=== PATIENT | male | born 1950 | race Caucasian/White ===

== ENCOUNTER 2018-11-24 15:16 | Inpatient (IN) | payer MEDICARE ==
[~2018-11-24] VITALS: Ht 182.9 cm; Wt 122.5 kg
--- OUTSIDE RECORDS SUMMARY | 2018-11-24 15:19 | XMS REPORT ---
Author Author [facility] Address Unknown Phone Unavailable Care Team Providers Care Automotive General Sales Manager Name Role Phone Unavailable Unavailable Problems This patient has no known problems. Allergies, Adverse Reactions, Alerts This patient has no known allergies or adverse reactions. Medications This patient has no known medications. Encounters Start Date/Time End Date/Time Encounter Type Admission Type Attending Clinicians Care Facility Care Department Encounter ID 2017-01-14 11:14:00 2017-01-14 11:14:00 Outpatient [facility] [id number]
--- OUTSIDE RECORDS SUMMARY | 2018-11-24 15:19 | XMS REPORT | Summary of Care ---
Author Author Josi Edwards R.N. Unknown Address [facility] Phone Unavailable Care Team Providers Care Freight Brake Operator Name Role Phone DINAH Reynolds, AMY Unavailable Unavailable DINAH BEATTY VA, AMY Richards Unavailable Unavailable JITENDRA BEATTY, LUIS Zee Unavailable Unavailable KEREN BEATTY, PAULA Zarate Unavailable Unavailable MARTIN ROBERTSON MD, THAIS Guaman Unavailable Unavailable Unavailable Unavailable Functional Status Name Dates Details Functional status health issues are not documented Status: Name Dates Details Cognitive status health issues are not documented Status: Problems Name Dates Details Need for influenza vaccination (V04.81, Z23) Status: Active Ganglion of foot, left (727.43, M67.472) Status: Active Postural urinary incontinence (788.39, N39.492) Status: Active POTS (postural orthostatic tachycardia syndrome) (427.89, R00.0) Status: Active Mixed hyperlipidemia (272.2, E78.2) Status: Active Need for pneumococcal vaccination (V03.82, Z23) Status: Active Need for shingles vaccine (V04.89, Z23) Status: Active Need for hepatitis C screening test (V73.89, Z11.59) Status: Active Medications Name Dates Details Atorvastatin Calcium 40 MG Oral Tablet TAKE 1 TABLET BY MOUTH AT BEDTIME Quantity: 90 Active Nystatin-Triamcinolone 784784-4.1 UNIT/GM-% External Cream APPLY SPARINGLY TO AFFECTED AREA(S) TWICE DAILY * Quantity: 30 Refills: 2 AMY NIX M.D. * Start : 24-Dec-2016 Active Shingrix 50 MCG Intramuscular Suspension Reconstituted INJECT 1 ML ONCE * Quantity: 1 Refills: 0 AMY NIX M.D. * Start : 24-Feb-2018 Active Allergies and Adverse Reactions Name Dates Details No Known Drug Allergies (Allergy) Status: Active Past Medical History Name Dates Details History of bladder cancer (V10.51, Z85.51) Status: Resolved History of colon polyps (V12.72, Z86.010) Status: Resolved History of hyperlipidemia (V12.29, Z86.39) Status: Resolved History of prostate cancer (V10.46, Z85.46) Status: Resolved Procedures Procedure Dates Details [QH] LIPID PANEL WITH REFLEX TO DIRECT LDL Date: 24-Feb-2018 [[facility]] CMP W/EGFR Date: 24-Feb-2018 [[facility]] TSH, 3RD GENERATION Date: 24-Feb-2018 [[facility]] HEPATITIS C ANTIBODY Date: 24-Feb-2018 [Q] FECAL GLOBIN BY IMMUNOCHEMISTRY Date: 24-Feb-2018 History of Cholecystectomy Completed History of Prostate Surgery Completed History of Bladder Surgery Completed History of Arthroscopy Knee Left Completed History of Arthroscopy Knee Right Completed Immunization Name Dates Details Tetanus on: Aug-2011 Fluzone Quadrivalent 0.5 ML Intramuscular Suspension Lot #: [id number] on: 03-Oct-2016 Prevnar 13 Intramuscular Suspension Lot #: [id number] on: 24-Feb-2018 Family History Name Dates Details Family history of diabetes mellitus (V18.0, Z83.3) Status: Active Name Dates Details Family history of malignant neoplasm of urinary bladder (V16.52, Z80.52) Status: Active Name Dates Details Family history of diabetes mellitus (V18.0, Z83.3) Status: Active Social History Name Dates Details - Status: Name Dates Details Never smoker Vital Signs Date Test Result Details [id number] Physical Findings 0 Status: Comments: Alcohol Screen - How many times in the past yr have you had 5 (for M) or 4 (for F) or 4 (for all > 65yrs) or more drinks in a day? Physical Findings 0 Status: Comments: PHQ-9 Adult Depression Screening 68-Gxh-48100:08 BP Systolic 118 mm[Hg] Status: Comments: Location: LUE; Position: Sitting BP Diastolic 71 mm[Hg] Status: Comments: Location: LUE; Position: Sitting Height 72 in Status: Weight 269.3125 lb Status: Body Mass Index Calculated 36.53 kg/m2 Status: Body Surface Area Calculated 2.42 m2 Status: Temperature 98 f Status: Comments: Method: Temporal Heart Rate 73 /min Status: Respiration Rate 16 /min Status: Physical Findings 0 Status: Comments: Pain Scale Results Date Description Value Details Results not documented Plan of Care Name Dates Details Planned Observations [Q] FECAL GLOBIN BY IMMUNOCHEMISTRY On: 25-Feb-2018 Intent Planned Goals not documented Planned Encounters Urology Referral Appointment; AMY NIX M.D. On: 31-Mar-2018 9:00 Interventions Provided Medication Changes* Shingrix 50 MCG Intramuscular Suspension Reconstituted - Start Labs/Procedures/Imaging* [QH] LIPID PANEL WITH REFLEX TO DIRECT LDL; To Be Done: 24 Feb 2018 * [[facility]] CMP W/EGFR; To Be Done: 24 Feb 2018 * [[facility]] HEPATITIS C ANTIBODY; To Be Done: 24 Feb 2018 * [[facility]] TSH, 3RD GENERATION; To Be Done: 24 Feb 2018 Instructions* Patient Specific Education Given; Done: 24 Feb 2018 Medications/Immunizations Administered* Prevnar 13 Intramuscular Suspension; Done: 24 Feb 2018 Plan* Encouraged ongoing weight reduction via exercise, healthy diet, and portion control. * Monitor BP dadily. * Goal is < 130/80 without dizziness or syncope. 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 Was previously seeing Dr. Hunter, but he's no longer on his plan. * Referred patient to Dr. Santana. * Obtain fasting lipids, CMP, TSH, and hep C Ab. * FIT test given to screen for colon cancer. * Administer Prenvar. Get Pneumovax in 1 year. * Recommended flu vaccine this fall. * Td is up to date. * Rx given for Shingrix. Patient advised to get this at the pharmacy. Instructions Name Dates Details Instructions not documented Encounters Appointment; AMY NIX M.D. Encounter Diagnosis: Problem not documented On: 03-Oct-2016 9:00 Appointment; AMY NIX M.D. Encounter Diagnosis: Problem not documented On: 29-Oct-2016 14:15 Appointment; CAROLINE CRAIG M.D. Encounter Diagnosis: Problem not documented On: 13-Dec-2016 13:00 Appointment; AMY NIX M.D. Encounter Diagnosis: Problem not documented On: 24-Dec-2016 9:00 Appointment; AMY NIX M.D. Encounter Diagnosis: Problem not documented On: 24-Feb-2018 9:00
[2018-11-24] MEDS ORDERED: SODIUM CHLORIDE 0.9% 1000ML 1,000 ML IV STA (16:34)
[2018-11-24 17:28] LABS: BILIRUBIN,URINE NEGATIVE (NEGATIVE); CLARITY,URINE HAZY (CLEAR); COLOR,URINE YELLOW (YELLOW); KETONES,URINE TRACE (NEGATIVE); LEUKOCYTE ESTERASE ,URINE NEGATIVE (NEGATIVE); NITRITE,URINE NEGATIVE (NEGATIVE); PROTEIN,URINE DIPSTICK 1+ (NEGATIVE); URINE UROBILINOGEN 1 mg/dL (0.2 - 1)
[2018-11-24 17:37] LABS: BACTERIA,URINE MANY /HPF; EPITHELIAL CELLS,URINE FEW /LPF; RBC,URINE 21-50 /HPF (0-5); TRANSITIONAL EPI CELLS,URINE FEW; WBC,URINE (MAN) 0-5 /HPF (0-5)
--- NOTE | 2018-11-24 17:43 | Diagnostic Imaging Report ---
EXAM: CT Abdomen and Pelvis WITHOUT contrast INDICATION: Left flank pain. Kidney stone. Radiation to bladder due to cancer. Kidney stones. Hyperlipidemia. COMPARISON: None. TECHNIQUE: Abdomen and pelvis were scanned utilizing a multidetector helical scanner from the lung base to the pubic symphysis without administration of IV contrast. Absence of intravenous contrast decreases sensitivity for detection of focal lesions and vascular pathology. Coronal and sagittal reformations were obtained. Routine protocol was performed. IV CONTRAST: None ORAL CONTRAST: Water COMPLICATIONS: None RADIATION DOSE: Total DLP: 837.85 mGy*cm Estimated effective dose: (DLP x 0.015 x size factor) mSv CTDIvol has been reviewed. It is below the limits set by the Radiation Protocol Committee (RPC). Dose modulation, iterative reconstruction, and/or weight based adjustment of the mA/kV was utilized to reduce the radiation dose to as low as reasonably achievable. FINDINGS: LINES and TUBES: None. LOWER THORAX: Unremarkable HEPATOBILIARY: No focal hepatic lesions. No biliary ductal dilation. GALLBLADDER: Cholecystectomy clips SPLEEN: No splenomegaly. PANCREAS: No focal masses or ductal dilatation. ADRENALS: No adrenal nodules KIDNEYS/URETERS: 4 mm obstructing stone in the proximal left ureter best seen on series 3 image 102. Mild left hydronephrosis and hydroureter. Left perinephric fat stranding. Punctate nonobstructing right renal stone in the lower pole. GI TRACT: No abnormal distention, wall thickening, or evidence of bowel obstruction. PELVIC ORGANS/BLADDER: Surgical clips in the pelvis.. LYMPH NODES: No lymphadenopathy. VESSELS: Unremarkable. PERITONEUM / RETROPERITONEUM: No free air or fluid. BONES: Unremarkable. SOFT TISSUES: Unremarkable. IMPRESSION: 4 mm obstructing stone in the proximal left ureter best seen on series 3 image 102. Mild left hydronephrosis and hydroureter. Left perinephric fat stranding. Punctate nonobstructing right renal stone in the lower pole. Signed by: Dr. Kwaku Luu M.D. on 11/24/2018 5:40 PM
[2018-11-24] MEDS ORDERED: KETOROLAC TROMETHAMINE 30 MG/ML VIAL IV NR (18:30)
[2018-11-24] MEDS ORDERED: ONDANSETRON HCL INJ 2MG/ML 2ML 2 MG/ML VIAL IV NR (18:30)
[2018-11-24] MEDS ORDERED: MORPHINE SULFATE INJ 4 MG/ML INJ 1ML IV NR (18:30)
[2018-11-24] MEDS: SODIUM CHLORIDE 0.9% 1000ML 1,000 ML IV SCH (18:36)
[2018-11-24 18:37] LABS: BASOPHILS # (AUTO) 0.1 (0.0-0.1); BASOPHILS % 0.3 % (0.0-1.0); EOSINOPHILS % 0.2 % (0.0-6.0); HEMATOCRIT 48.8 % (38.2-49.6); HEMOGLOBIN 16.8 g/dL (14.0-18.0); LYMPHOCYTES # (AUTO) 1.1 (1.0-3.2); LYMPHOCYTES % 7.1 % (18.0-39.1); MEAN CORPUSCULAR HEMOGLOBIN 33.1 pg (28-32); MEAN CORPUSCULAR HGB CONC 34.4 g/dL (31-35); MEAN CORPUSCULAR VOLUME 96.1 fL (81-99); MONOCYTES # (AUTO) 0.8 (0.2-0.8); MONOCYTES % 5.4 % (4.4-11.3); NEUTROPHILS # (AUTO) 13.1 (2.1-6.9); NEUTROPHILS % 86.5 % (38.7-80.0); PLATELET COUNT 219 x10e3/uL (140-360); RED BLOOD COUNT 5.08 x10e6/uL (4.3-5.7); RED CELL DISTRIBUTION WIDTH 12.5 % (11.7-14.4)
[2018-11-24 18:53] LABS: ALBUMIN/GLOBULIN RATIO 1.2 (0.8-2.0); ANION GAP 14.2 mmol/L (8-16); CALCIUM 9.9 mg/dL (8.4-10.2); CREATININE, SERUM 1.29 mg/dL (0.72-1.25); MAGNESIUM 2.1 MG/DL (1.3-2.1); POTASSIUM 4.2 mmol/L (3.5-5.1)
[2018-11-24] MEDS ORDERED: CEFTRIAXONE SOD 1 GM/NS 50 ML 50 ML IV ONE (19:30)
[2018-11-24] MEDS ORDERED: SODIUM CHLORIDE 0.9% 1000ML 1,000 ML IV SCH (19:39)
[2018-11-24] MEDS ORDERED: ONDANSETRON HCL INJ 2MG/ML 2ML 2 MG/ML VIAL IV PRN (19:45)
[2018-11-24] MEDS ORDERED: MORPHINE SULFATE INJ 4 MG/ML INJ 1ML IV PRN (20:00)
[2018-11-24] MEDS: CEFTRIAXONE SOD 1 GM/NS 50 ML 50 ML IV SCH (20:13)
--- NOTE | 2018-11-24 20:22 | NUR ---
REPORT RECEIVED FROM QUEENIE IN ER FOR THIS PT.CONSULT TO DR CHAUDHRY ALREADY CALLED PER REPORT FROM QUEENIE.AWAITING PT ARRIVAL TO FLOOR.
--- NOTE | 2018-11-24 20:25 | History and Physical ---
CHIEF COMPLAINT: Lower abdominal pain. HISTORY OF PRESENT ILLNESS: Mr. Simmons is a 67-year-old male, who presented to the emergency room with lower abdominal pain. The patient has history of kidney stones in the past. He had CT chest done and shows 4 mm obstructing stone in the proximal left ureter and with mild hydronephrosis. He is denying any nausea, vomiting, diarrhea, or focal weakness. REVIEW OF SYSTEMS: GENERAL: Denies any fever or chills. HEAD: Denies any head trauma. ENT: Denies any earache. CVS: Denies any chest pain. RESPIRATORY: Shortness of breath. GI: Denies any nausea or vomiting. The rest of the review of systems are negative except as in HPI. PAST MEDICAL HISTORY: Prostate cancer in 2007 and gallbladder cancer in 2010. He is cancer free. PAST SURGICAL HISTORY: Cholecystectomy, prostate surgery, and knee surgery. FAMILY AND SOCIAL HISTORY: He does not smoke. Does not drink. 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 PHYSICAL EXAMINATION: VITAL SIGNS: Temperature 97.9, pulse of 83, and blood pressure 155/72. CHEST: Clear to auscultation bilaterally. No wheezing. HEART: S1 and S2 audible. ABDOMEN: Soft. Left CVA tenderness. EXTREMITIES: No pedal edema. NEUROLOGIC: Awake and alert. LABS: White count of 15,000, hemoglobin 16.8, and platelets 219. Chemistry is within normal limits. Creatinine is 1.29. ASSESSMENT: Mr. Simmons is a 67-year-old male, who presented to emergency room with left flank pain, diagnosed with an obstructing kidney stone. Current problems: 1. Nephrolithiasis. 2. Mild acute kidney injury due to nephrolithiasis and leukocytosis. PLAN: 1. Urology consult. 2. Continue the patient on IV antibiotics as ordered. Morphine for pain control. MD RAMANDEEP Hernandez/GRETCHEN /[id number]
[2018-11-24 20:38] VITALS: BP 131/77
[2018-11-24 21:57] VITALS: BP 131/77
--- NOTE | 2018-11-24 22:18 | NUR ---
PT RESTING IN BED WITH NO S/S OF DISTRESS.RESPIRATIONS EVEN/NON LABORED.ADMISSION HX,FAMILY HX AND ASSESSMENT DONE.INSTRUCTED PT TO CALL THE NURSE AFTER EACH VOID TO STRAIN URINE,PT VERBALIZED UNDERSTANDING.PT DENIES ANY PAIN CURRENTLY.BED IN LOW/LOCKED POSITION.INSTRUCTED PT TO CALL FOR ASSISTANCE NEEDED.CALL LIGHT WITHIN EASY REACH.
[2018-11-24] MEDS ORDERED: ATORVASTATIN CA20 MG PO (23:44)
[2018-11-25] VITALS (8 sets, daily range): BP systolic 118–166; BP diastolic 61–86
[2018-11-25] MEDS: SODIUM CHLORIDE 0.9% 1000ML 1,000 ML IV SCH ×2 (04:58→15:41)
--- NOTE | 2018-11-25 07:13 | NUR ---
REPORT GIVEN TO ONCOMING NURSE.WALKING ROUNDS MADE.PT RESTING IN BED WITH NO S/S OF DISTRESS.
--- NOTE | 2018-11-25 07:25 | NUR ---
The pt. was received from the off-going nurse on N P O status for cysto and other indicated procedures today. The consent is pending until Dr. Lowe speaks with the pt. Dr. Lowe arrived during report and the consent has been signed.
--- NOTE | 2018-11-25 10:12 | Consultation ---
DATE OF CONSULTATION: 11/25/2018 Urology Consultation. REASON FOR CONSULTATION: Obstructive uropathy. HISTORY OF PRESENT ILLNESS: Johny Simmons is a 67-year-old man, who has had 2 previous stones in the past. The patient underwent ESWL for those stones. He was a previous patient of Dr. Selwyn Hunter. He has not followed with Dr. Selwyn Hunter since he retired and his insurance changed due to insurance incompatibility with the doctor. The patient also has history of prostate cancer in 2006, underwent a radical retropubic prostatectomy with bilateral pelvic lymphadenectomy. The patient has been prostate cancer free since then. The patient at one of the stone procedures was noted to have bladder cancer. He underwent resection. He also had a recurrence of the bladder cancer and following this, he underwent a year of BCG immunotherapy. The patient reports a very minimal stress type urinary incontinence that is inconsequential and he does report impotence. He has failed Viagra and Cialis and has had problems of discomfort in his legs and unwanted side effects from intracorporeal injections. The patient has severe left-sided flank pain without any hematuria or dysuria. He reported to the emergency room, was evaluated and subsequently admitted. PAST MEDICAL AND SURGICAL HISTORY: 1. Status post cholecystectomy. 2. Status post bilateral knee surgery. 3. Hypercholesterolemia. 4. Obesity. ALLERGIES: NONE KNOWN. CURRENT MEDICATIONS: Atorvastatin plus refer to the MAR. SOCIAL HISTORY: The patient denies smoking, alcohol, drug use. 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 FAMILY HISTORY: Significant for urolithiasis in the patient's sister and prostate cancer in patient's identical twin brother. REVIEW OF SYSTEMS: Discussed as above history of present illness and past medical history, otherwise negative for all systems. PHYSICAL EXAMINATION: GENERAL: Very pleasant 67-year-old male lying in bed, in no apparent distress. He is currently afebrile. VITAL SIGNS: Currently stable. ABDOMEN: Soft, nondistended, nontender with costovertebral angle tenderness. Kidneys are not palpable without hepatosplenomegaly. No obvious evidence of hernia. The patient is obese. There is an infraumbilical midline healed scar. GENITOURINARY: Testes descended bilaterally. Testes and epididymis are bilaterally palpably normal. The patient has a circumcised male phallus of normal configuration with dense post circumcision adhesions on the right side of the glans penis. The patient desires resolution and treatment for due to the fact that they have risen over the last couple of years. For the remaining physical examination systems, please refer the ERT sheet as well as to the history and physical. LABORATORY STUDIES: CT scan of the abdomen and pelvis reveals an obstructing high 4 mm stone with left side hydronephrosis and a punctate right-sided stone and no evidence of cancer recurrence. Urine culture is preliminarily negative. The patient's white blood cell count is 15,190, hemoglobin 16.8, platelets 219,000. Creatinine is elevated at 1.29. Urinalysis significant for microscopic hematuria and "many bacteria." ASSESSMENT: 1. Left renal colic that is well controlled with intravenous analgesia. 2. Left ureterolithiasis. 3. Right nephrolithiasis. 4. Left hydroureteronephrosis. 5. Leukocytosis. 6. Presumably acute renal failure. 7. Microhematuria. 8. Prior history of stone disease in this particular patient. 9. Prostate cancer. 10. Bladder cancer. 11. Post circumcision penile adhesions. 12. Obesity. 13. Minimal stress type urinary incontinence. 14. Erectile dysfunction. 15. Family history of urolithiasis. 16. Family history of prostate cancer. PLAN: 1. Due to the fact the patient has significant symptomatology with the stone still very high up as well as renal failure as well as potential for urinary tract infection, I recommend that the patient undergo cystoscopy, retrograde pyelogram, and insertion of stent with later stone management. The patient is agreeable and elects to proceed with that procedure as planned. He understands he will have a temporary indwelling ureteral stent requires followup and removal. 2. The patient needs ongoing urological followup for his prostate cancer, bladder cancer, and happy to assume his ongoing urological care from now on. 3. I also offered the patient the option of a penile prosthesis, which he will consider at a later time. Thank you very much for involving us in care of your patient. We will be happy to follow him along with you as well as an outpatient. Sven MD Mynor OH/MODL /[id number] cc: Johanny Hernández MD
--- NOTE | 2018-11-25 12:07 | NUR ---
The pt. has been taken to the O R via stretcher and is in stable condition.
[2018-11-25] MEDS ORDERED: IOPAMIDOL 610MG/1ML 300 MG/ML VIAL IV ONE (12:46)
[2018-11-25] MEDS ORDERED: BELLADONNA/OPIUM 60 MG SUPP PR ONE (12:46)
[2018-11-25] MEDS ORDERED: MUPIROCIN 2% OINT 22 GM TUBE ONE (12:58)
[2018-11-25] MEDS ORDERED: ACETAMINOPHEN/CODEINE 300MG - 30MG TAB PO PRN (13:15)
[2018-11-25] MEDS ORDERED: HYDROMORPHONE 2MG/ML 2 MG/ML ML ONE (13:36)
--- NOTE | 2018-11-25 13:55 | NUR ---
The pt. returned from the O R s/p cysto retrogrades and stenting. He is awake alert and oriented times 3. Iv fluids are infusing as ordered and the pt. informed that we need to continue straining the urine.
[2018-11-25] MEDS ORDERED: MIDAZOLAM HCL 2 MG/2 ML VIAL ONE (14:30)
[2018-11-25] MEDS ORDERED: FENTANYL CITRATE/PF 100MCG/2 ML INJ ONE (14:30)
[2018-11-25] MEDS: OXYBUTYNIN CHLORIDE 5 MG TAB PO SCH ×2 (15:00→20:15)
--- NOTE | 2018-11-25 16:03 | NUR ---
CASE MANAGEMENT ASSESSMENT Port Surveyor to bedside to discuss plan of care with patient/family. CM/SW role and care transitions discussed. Anticipated discharge plan discussed along with duration of care. CM/SW discussed patients right to make decisions in care. CM/SW work hours given. Patient lives: with Zoe Admit/Transfer: thru ED Hospital/ER visits since last admit: 0 POA/Emergency contact: Zoe Simmons [phone] Current/Previous Home Health: none PCP/Follow-up Care: Dr. Johanny Hernández - PCP; advised pt to follow up with one of his MDs within 5 days of discharge. Current/Previous DME: none Medications (referring to index hospitalization or the first time you were in the hospital) a. Were changes made in your medications when you were in the hospital on [date of index hospitalization]? n/a b. Did you understand the changes? n/a c. Were you able to obtain your new medications right away? n/a d. Were you able to take your medications like the doctor wanted you to? n/a e. Did the hospital give you an accurate, easy to understand list of medications when you left? n/a Scale of 1-10 how comfortable does patient feel with disease management in outpatient settin Other Services: none Employment Status: retired Areas of Concerns: hydronephrosis Referral Needs: none Education Needs: medical management IMM/HOWELL given and signed (if applicable): IMM letter delivered and explained to pt. He verbalized understanding. Signed copy placed in chart. Copy to pt. Goal for discharge: home CM/SW left business card at the bedside with contact information. Name and number was also written on the patients whiteboard. Patient verbalized understanding of discussion. CM will follow-up with ongoing discharge and transition of care needs.
--- NOTE | 2018-11-25 18:29 | NUR ---
The pt. called to report that he is having cramping pain and feels like he needs to evacuate his bowels and there are no med on record. A call was placed to Dr. Lowe for orders.
[2018-11-25] MEDS: PHENAZOPYRIDINE HCL 100 MG TAB PO SCH (18:38)
[2018-11-25] MEDS: DOCUSATE SODIUM 100 MG CAP PO SCH (18:38)
--- NOTE | 2018-11-25 18:41 | NUR ---
Dr. Lowe returned the call and ordered b and o suppository q 6 hr and the pt. was made aware.
[2018-11-25] MEDS ORDERED: BELLADONNA/OPIUM 30 MG SUPP RC PRN (18:45)
[2018-11-25] MEDS: CEFTRIAXONE SOD 1 GM/NS 50 ML 50 ML IV SCH (20:15)
[2018-11-25] MEDS ORDERED: ONDANSETRON HCL INJ 2MG/ML 2ML 2 MG/ML VIAL ONE (20:18)
[2018-11-25] MEDS ORDERED: SEVOFLURANE INHAL SOLN 250 ML PEN BTL ONE (20:18)
[2018-11-25] MEDS ORDERED: PROPOFOL IV EMULSION 10 MG/ML 20 ML VIAL ONE (20:18)
[2018-11-25] MEDS ORDERED: CEFTRIAXONE SOD 1 GM VIAL ONE (20:18)
[2018-11-25] MEDS ORDERED: DEXAMETHASONE SOD PHOS INJ 4 MG/ML VIAL ONE (20:18)
[2018-11-25] MEDS ORDERED: LIDOCAINE HCL 2% LOCAL INJ 5 ML SDV VIAL INJ ONE (20:18)
[2018-11-26] VITALS: BP 120/57
[2018-11-26] MEDS: SODIUM CHLORIDE 0.9% 1000ML 1,000 ML IV SCH (00:30)
--- NOTE | 2018-11-26 01:30 | NUR ---
Patient's dressing to penis fell off. Dressing changed.
--- NOTE | 2018-11-26 03:00 | NUR ---
Dressing to penis fell off again. Patient complain of discomfort during dressing change. Site left open to air.
[2018-11-26 04:00] VITALS: BP 128/62
[2018-11-26 05:33] LABS: BASOPHILS % 0.3 % (0.0-1.0); EOSINOPHILS # (AUTO) 0.1 (0.0-0.4); EOSINOPHILS % 0.4 % (0.0-6.0); HEMOGLOBIN 15.1 g/dL (14.0-18.0); LYMPHOCYTES # (AUTO) 1.7 (1.0-3.2); LYMPHOCYTES % 14.2 % (18.0-39.1); MEAN CORPUSCULAR HGB CONC 34.3 g/dL (31-35); MEAN CORPUSCULAR VOLUME 96.3 fL (81-99); MONOCYTES # (AUTO) 0.7 (0.2-0.8); MONOCYTES % 6.1 % (4.4-11.3); NEUTROPHILS # (AUTO) 9.2 (2.1-6.9); NEUTROPHILS % 78.7 % (38.7-80.0); PLATELET COUNT 197 x10e3/uL (140-360); RED BLOOD COUNT 4.57 x10e6/uL (4.3-5.7); RED CELL DISTRIBUTION WIDTH 12.7 % (11.7-14.4)
[2018-11-26 05:50] LABS: ANION GAP 11.9 mmol/L (8-16); BLOOD UREA NITROGEN 15 mg/dL (7-26); BUN/CREATININE RATIO 17 (6-25); CALCIUM 8.8 mg/dL (8.4-10.2); CARBON DIOXIDE 24 mmol/L (22-29); CHLORIDE 109 mmol/L (98-107); CREATININE, SERUM 0.87 mg/dL (0.72-1.25); EST GLOMERULAR FILTRATION RATE > 60 ML/MIN (60-); GLUCOSE 98 mg/dL (74-118); POTASSIUM 3.9 mmol/L (3.5-5.1); SODIUM 141 mmol/L (136-145)
--- NOTE | 2018-11-26 08:00 | NUR ---
Dr. Lowe visited and stated that from his standpoint the pt. is okay for discharge.
[2018-11-26 08:09] VITALS: BP 142/81
[2018-11-26] MEDS: DOCUSATE SODIUM 100 MG CAP PO SCH (08:25)
[2018-11-26] MEDS: OXYBUTYNIN CHLORIDE 5 MG TAB PO SCH (08:25)
[2018-11-26] MEDS: PHENAZOPYRIDINE HCL 100 MG TAB PO SCH (08:25)
[2018-11-26 10:11] VITALS: BP 142/81
--- NOTE | 2018-11-26 10:36 | NUR ---
A call was placed to Dr. Ospina for discharge orders.
[2018-11-26] MEDS ORDERED: TYLENOL WITH C1 EACH PO (10:52)
[2018-11-26] MEDS ORDERED: DITROPAN XL5 MG PO (10:59)
[2018-11-26] MEDS ORDERED: CEFUROXIME500 MG PO (11:04)
[2018-11-26] MEDS ORDERED: ONDANSETRON HCL 4 MG ORAL DISINTEGRATING TAB PO PRN (11:30)
--- NOTE | 2018-11-26 12:00 | NUR ---
The pt. was escorted to private car via w/c and placed to the care of his spouse. The pt. was provided prescriptions and follow up instructions. He was also provided urine strainers for home use. He will follow up in 3 weeks or more.
--- NOTE | 2018-11-27 05:04 | Discharge Summary ---
FINAL DIAGNOSES: History of renal stones, ureteral calculus, abdominal pain, history of prostate cancer, history of bladder cancer. ADMISSION HISTORY AND HOSPITAL COURSE: Mr. Simmons is a 67-year-old male, who presented to the emergency room with the complaints of abdominal pain, was found to have obstructing kidney stone. The patient underwent placement of stent and cystoscopy with retrograde pyelogram. He did well after the procedure. Urology has cleared the patient for discharge. He will be discharged home to follow up with his primary care physician. Discharge medication list reviewed. Labs reviewed. Discussion was done with the patient and his at bedside. MD RAMANDEEP Hernandez/GRETCHEN /[id number]
--- NOTE | 2018-12-23 04:31 | Operative Report ---
DATE OF PROCEDURE: 11/24/2018 SURGEON: Sven Lowe MD PREOPERATIVE DIAGNOSES: 1. Left hydronephrosis due to stone. 2. Microscopic hematuria. 3. Urinary tract infection. POSTOPERATIVE DIAGNOSES: 1. Left hydronephrosis due to stone. 2. Microscopic hematuria. 3. Urinary tract infection. 4. Penile adhesions. OPERATION PERFORMED: 1. Release of penile adhesions (separate procedure performed prior to preparation and draping). 2. Cystourethroscopy with bilateral ureteral catheterization and retrograde ureteropyelography (separate procedure performed for hematuria and urinary tract infections). 3. Interpretation of retrograde ureteropyelography. 4. Supervision of fluoroscopy, no radiologist present. 5. Cystourethroscopy with insertion of left indwelling ureteral stent (separate procedure performed to relieve the hydronephrosis). ANESTHESIA: General. COMPLICATIONS: None. CLINICAL SUMMARY: Johny Simmons is a 67-year-old man with the above preoperative diagnoses. He is brought for the above procedures. He is brought for relief of his hydronephrosis. He is aware of the risks of bleeding, infection, injury to adjacent structures, need for additional procedures and elected to proceed. OPERATIVE PROCEDURE IN DETAIL: Informed consent was verified. Johny Simmons was properly identified, taken to the operating room, placed on the cystoscopy table in supine position. Anesthesia was uneventfully begun. The patient was then carefully and gently repositioned in the dorsal lithotomy position with all pressure points well padded. We carefully examined the patient's penis and took down all preputial adhesions. Once this was performed, his genitalia were prepared and draped in usual sterile fashion. The cystoscope sheath with the visual obturator in place was atraumatically inserted into the patient's urethra and was guided unremarkably. Urethra passed wide caliber, not clinically significant stricture disease through the normal sphincteric region through the prostate bed which exhibited some wide caliber bladder neck contracture. We entered the patient's bladder where panendoscopy revealed scarring consistent with prior TUR bladder tumor. No suspicious mucosal lesions were identified. There were no tumors and there were no stones. A ureteral catheter was used to cannulate each ureter and retrograde ureteropyelograms were performed. With cystoscopic and fluoroscopic guidance, a left-sided indwelling ureteral stent was then placed, it was coiled in the patient's kidney as well as in the patient's bladder where the retaining suture was cut short. Interpretation of retrograde ureteropyelography: Contrast was instilled in a retrograde fashion bilaterally. There was left-sided hydroureteronephrosis down to the level of what we believed to be the stone. The stent was in good position. We coiled the patient's kidneys as well as the patient's bladder at the end of the case, right side was unremarkable. There were no tumors, no stones, no diverticula. Unobstructed drainage was observed fluoroscopically. The patient's bladder was drained. Cystoscope was withdrawn. Explicit belladonna and opium suppository were placed. The patient was uneventfully reversed from anesthesia and taken to the recovery room in stable condition. There were no complications to the procedure. He tolerated the procedure well. Expressive postop instructions were given. We are unsure if patient is okay by the first postoperative day, following which we will agree with discharging the patient home with followup for stent removal and ureteroscopy with laser as an outpatient. Sven Lowe MD [facility]/MODL /[id number]
== END 2018-11-26 11:58 | disposition home or self-care (01) | DRG 661 ==
LOC: ER 15:16 → ERHOLD 20:24 → MED/SURG2 20:38
PROVIDERS: ADMIT Internal Medicine; ATTEND Internal Medicine
PROC: 0T778DZ Dilation of Left Ureter with Intraluminal Device, Via Natural or Artificial Opening Endoscopic (ICD-10-PCS; principal; 2018-11-24)
PROC: 0VNS0ZZ Release Penis, Open Approach (ICD-10-PCS; 2018-11-24)
PROC: BT141ZZ Fluoroscopy of Kidneys, Ureters and Bladder using Low Osmolar Contrast (ICD-10-PCS; 2018-11-24)
PROC: 0T788ZZ Dilation of Bilateral Ureters, Via Natural or Artificial Opening Endoscopic (ICD-10-PCS; 2018-11-24)
DX: N13.2 Hydronephrosis with renal and ureteral calculous obstruction (principal); N17.9 Acute kidney failure, unspecified; N39.0 Urinary tract infection, site not specified; N52.9 Male erectile dysfunction, unspecified; Z85.46 Personal history of malignant neoplasm of prostate; Q55.8 Other specified congenital malformations of male genital organs; Z85.51 Personal history of malignant neoplasm of bladder; E78.5 Hyperlipidemia, unspecified; E66.9 Obesity, unspecified; Z68.36 Body mass index [BMI] 36.0-36.9, adult
CPT/HCPCS: 36415; 74176; 74420; 80048; 80053; 81001; 83735; 83970; 84550; 85025; 87086; 99284; C1758; C2617; J0696; J1100; J1885; J2001; J2250; J2270; J2405; J7030

== ENCOUNTER → 2019-02-19 | Outpatient (CLI) | payer MEDICARE ==
[~2019-02-19] MED LIST: ATORVASTATIN CA20 MG PO; CEFUROXIME500 MG PO; DITROPAN XL5 MG PO; LEVAQUIN500 MG PO; MULTIVITAMINS1 EAC7 PO; TYLENOL WITH C1 EACH PO
--- NOTE | 2019-02-19 10:08 | Diagnostic Imaging Report ---
Exam: KUB - 2 views Clinical History: Renal calculus. Comparison: CT abdomen/pelvis 11/24/2018 and retrograde pyelogram 11/25/2018. Findings: Bowel gas obscures visualization of the kidneys. No radiographic evidence of calcification overlying the kidneys or expected course of the ureters. Nonobstructive bowel gas pattern. Moderate amount of the colon. Surgical clips project over the pelvis and right upper quadrant. No acute osseous abnormality. Impression: Bowel gas obscures visualization of the kidneys. No radiographic evidence of nephrolithiasis. Signed by: Dr. Rosi Ashby MD on 02/19/2019 10:05 AM
== END ==
LOC: RAD 09:25
PROVIDERS: ATTEND Urology
DX: N20.0 Calculus of kidney (principal)
CPT/HCPCS: 74018

== ENCOUNTER 2019-04-26 11:38 | Inpatient (IN) | payer MEDICARE ==
[2019-04-22 11:01] LABS: BASOPHILS # (AUTO) 0.1 (0.0-0.1); BASOPHILS % 0.8 % (0.0-1.0); EOSINOPHILS # (AUTO) 0.2 (0.0-0.4); EOSINOPHILS % 2.2 % (0.0-6.0); HEMATOCRIT 47.8 % (38.2-49.6); HEMOGLOBIN 16.1 g/dL (14.0-18.0); LYMPHOCYTES # (AUTO) 1.6 (1.0-3.2); LYMPHOCYTES % 21.4 % (18.0-39.1); MEAN CORPUSCULAR HEMOGLOBIN 32.3 pg (28-32); MEAN CORPUSCULAR HGB CONC 33.7 g/dL (31-35); MONOCYTES # (AUTO) 0.6 (0.2-0.8); MONOCYTES % 8.7 % (4.4-11.3); NEUTROPHILS # (AUTO) 4.9 (2.1-6.9); NEUTROPHILS % 66.1 % (38.7-80.0); PLATELET COUNT 232 x10e3/uL (140-360); RED BLOOD COUNT 4.98 x10e6/uL (4.3-5.7); RED CELL DISTRIBUTION WIDTH 12.9 % (11.7-14.4)
--- NOTE | 2019-04-22 11:04 | Diagnostic Imaging Report ---
EXAMINATION: CHEST 2 VIEWS INDICATION: Pre-operative COMPARISON: None FINDINGS: LINES/TUBES:None LUNGS:The lungs are well-inflated. Minimal apical pleural parenchymal thickening/scarring. No focal consolidation or pulmonary edema. PLEURA:No pleural effusion or pneumothorax. MEDIASTINUM:The cardiomediastinal silhouette appears normal in size and shape. BONES/SOFT TISSUES:No acute osseous injury. Mild degenerative changes of the visualized spine. ABDOMEN:No free air under the diaphragm. IMPRESSION: No focal pneumonia or pulmonary edema. Signed by: Jose Coello MD on 04/22/2019 11:00 AM
[~2019-04-26] VITALS: Ht 182.9 cm; Wt 113.4 kg
[~2019-04-26 11:38] MED LIST changes: -LEVAQUIN500 MG PO
--- OUTSIDE RECORDS SUMMARY | 2019-04-26 11:44 | XMS REPORT | Clinical Summary ---
Author Author [facility] Address Unknown Phone Unavailable Care Team Providers Care Mobile Unit Assistant Name Role Phone Abram Sage MD PCP Unavailable Allergies No Known Allergies Medications No known medications Active Problems Not on file Social History Date Tobacco Use Types Packs/Day Years Used Never Smoker Alcohol Use Drinks/Week oz/Week Comments No Sex Assigned at Date Recorded Not on file Industry Job Start Date Occupation Not on file Not on file Not on file Travel End Travel History Travel Start No recent travel history available. Last Filed Vital Signs Not on file Plan of Treatment Not on file Results Not on fileafter 04/25/2018 Insurance Payer Benefit Subscriber ID Type Phone Address Plan / Group [employer] - [employer]ET[employer] HMO xxxxxxxxxx HMO/POS POS QPOS
[2019-04-26] MEDS ORDERED: PIPER-TAZ 3.375 GM 50 ML ONE (11:49)
[2019-04-26] MEDS ORDERED: CLINDAMYCIN 600MG / 50ML 50 ML IV ONE (11:49)
[2019-04-26] MEDS ORDERED: GENTAMICIN 80MG/NS 100 ML 200 ML IV ONE (11:50)
[2019-04-26] MEDS ORDERED: BACITRACIN 50,000 UNIT VIAL ONE (14:36)
[2019-04-26] MEDS ORDERED: BUPIVACAINE HCL 0.5% INJ 30 ML VIAL INJ ONE (14:36)
[2019-04-26] MEDS ORDERED: MUPIROCIN 2% OINT 22 GM TUBE ONE (14:36)
[2019-04-26] MEDS ORDERED: LIDOCAINE HCL 2% LOCAL INJ 5 ML SDV VIAL INJ ONE (14:49)
[2019-04-26] MEDS ORDERED: ONDANSETRON HCL INJ 2MG/ML 2ML 2 MG/ML VIAL ONE (14:49)
[2019-04-26] MEDS ORDERED: SEVOFLURANE INHAL SOLN 250 ML PEN BTL ONE (14:49)
[2019-04-26] MEDS ORDERED: DEXAMETHASONE SOD PHOS INJ 4 MG/ML VIAL ONE (14:49)
[2019-04-26] MEDS ORDERED: PROPOFOL IV EMULSION 10 MG/ML 20 ML VIAL ONE (14:49)
[2019-04-26] MEDS ORDERED: NALOXONE HCL INJ 0.4 MG/ML AMP IV PRN (15:15)
[2019-04-26] MEDS ORDERED: MORPHINE SULFATE 1 MG/ML 30ML PCA IV PRN (15:15)
[2019-04-26] MEDS ORDERED: FENTANYL CITRATE/PF 100MCG/2 ML INJ ONE ×2 (15:35→18:22)
[2019-04-26] MEDS: DOCUSATE SODIUM 100 MG CAP PO SCH (17:00)
--- OUTSIDE RECORDS SUMMARY | 2019-04-26 17:21 | XMS REPORT | Clinical Summary ---
Author Author [facility] Address Unknown Phone Unavailable Care Team Providers Care Printing Plate Setter Name Role Phone Abram Sage MD PCP [...]
[2019-04-26] MEDS ORDERED: MORPHINE SULFATE 1 MG/ML 30ML PCA ONE (17:46)
[2019-04-26] MEDS ORDERED: HYDROMORPHONE 2MG/ML 2 MG/ML ML ONE (17:53)
[2019-04-26] MEDS: PHENAZOPYRIDINE HCL 100 MG TAB PO SCH (18:00)
--- NOTE | 2019-04-26 18:14 | NUR ---
report received from PACU, patient to arrive to unit with at bedside.
[2019-04-26] MEDS ORDERED: MIDAZOLAM HCL 2 MG/2 ML VIAL ONE (18:22)
--- NOTE | 2019-04-26 18:25 | NUR ---
patient arrived to unit via hospital bed, alert and oriented with at bedside. AUTOMOTIVE SERVICE ADVISOR pump running, pinon in place, bed in lowest position and call rodriguez within reach.
[2019-04-26 19:14] VITALS: BP 136/71
--- NOTE | 2019-04-26 19:14 | NUR ---
PT IS RESTING IN BED WITH AT BEDSIDE. RESPIRATION IS EVEN AND UNLABORED, NO DISTRESS NOTED. BED IN THE LOWEST POSITION, LOCKED, AND CALL LIGHT WITHIN REACH. WILL CONTINUE TO MONITOR.
--- NOTE | 2019-04-26 20:08 | NUR ---
PAGE DR RUIZ FOR ORDERS. AWAITING CALL BACK. WILL CONTINUE TO MONITOR.
--- NOTE | 2019-04-26 20:14 | NUR ---
PER DR RUIZ TYLENOL 650MG PO Q4H PRN. WILL CONTINUE TO MONITOR.
[2019-04-26] MEDS ORDERED: ACETAMINOPHEN 325 MG TAB PO PRN (20:15)
[2019-04-26] MEDS: D5.45%NS/KCL 20MEQ 1,000 ML IV SCH (21:18)
[2019-04-26] MEDS: CLINDAMYCIN 600MG / 50ML 50 ML IV SCH (21:27)
[2019-04-26] MEDS: PIPER-TAZ 3.375 GM 50 ML IV SCH (22:20)
[2019-04-26 23:31] VITALS: BP 128/77
[2019-04-27] VITALS (8 sets, daily range): BP systolic 113–148; BP diastolic 53–70
[2019-04-27] MEDS ORDERED: ACETAMINOPHEN 325 MG TAB PO PRN (04:30)
[2019-04-27] MEDS: CLINDAMYCIN 600MG / 50ML 50 ML IV SCH ×3 (05:26→21:27)
[2019-04-27 05:35] LABS: BASOPHILS # (AUTO) 0.1 (0.0-0.1); BASOPHILS % 0.3 % (0.0-1.0); EOSINOPHILS % 0.1 % (0.0-6.0); HEMATOCRIT 45.3 % (38.2-49.6); HEMOGLOBIN 15.6 g/dL (14.0-18.0); LYMPHOCYTES # (AUTO) 1.3 (1.0-3.2); LYMPHOCYTES % 8.6 % (18.0-39.1); MEAN CORPUSCULAR HEMOGLOBIN 32.8 pg (28-32); MEAN CORPUSCULAR HGB CONC 34.4 g/dL (31-35); MEAN CORPUSCULAR VOLUME 95.4 fL (81-99); MONOCYTES # (AUTO) 1.2 (0.2-0.8); MONOCYTES % 8.1 % (4.4-11.3); NEUTROPHILS # (AUTO) 12.1 (2.1-6.9); NEUTROPHILS % 82.5 % (38.7-80.0); PLATELET COUNT 261 x10e3/uL (140-360); RED BLOOD COUNT 4.75 x10e6/uL (4.3-5.7); RED CELL DISTRIBUTION WIDTH 12.8 % (11.7-14.4)
[2019-04-27 06:07] LABS: BLOOD UREA NITROGEN 12 mg/dL (7-26); BUN/CREATININE RATIO 12 (6-25); CARBON DIOXIDE 26 mmol/L (22-29); CHLORIDE 102 mmol/L (98-107); CREATININE, SERUM 1.02 mg/dL (0.72-1.25); EST GLOMERULAR FILTRATION RATE > 60 ML/MIN (60-); GLUCOSE 135 mg/dL (74-118); SODIUM 135 mmol/L (136-145)
[2019-04-27] MEDS: PIPER-TAZ 3.375 GM 50 ML IV SCH ×3 (06:09→21:27)
[2019-04-27] MEDS: D5.45%NS/KCL 20MEQ 1,000 ML IV SCH ×4 (06:32→21:27)
--- NOTE | 2019-04-27 06:45 | NUR ---
walking rounds made, patient alert and oriented and aware of change. call rodriguez within reach and bed in lowest position.
[2019-04-27] MEDS: DOCUSATE SODIUM 100 MG CAP PO SCH ×2 (08:30→17:21)
[2019-04-27] MEDS: PHENAZOPYRIDINE HCL 100 MG TAB PO SCH ×3 (08:30→17:21)
--- NOTE | 2019-04-27 10:00 | NUR ---
patient alert and oriented. Garcia removed at this time, catheter in tact. patient tolerated well. dressing removed per MD at this time as well. Tegaderm replaced on scrotal incision. 100mL of bright yellow urine remaining in Garcia emptied. call rodriguez within reach, bed in lowest position and at bedside.
--- NOTE | 2019-04-27 16:22 | History and Physical ---
Mr. Simmons is a pleasant 68-year-old male with complex past medical history. CHIEF COMPLAINT: He is admitted at this time for penile implant. PAST MEDICAL HISTORY: Complex with prostate cancer diagnosed in 2007, treated with suprapubic prostatectomy. He reports he did not have any chemotherapy or radiation. He also had bladder cancer in 2010, treated with BCG instillations. He had a remote cholecystectomy and knee surgery. MEDICATIONS: His only home medication he report is atorvastatin. PERSONAL AND SOCIAL HISTORY: He does not smoke or drink. FAMILY HISTORY: He reports that his mother, sister, and his identical twin all have type 2 adult onset diabetes. REVIEW OF SYSTEMS: CARDIAC: He denies any chest pain or palpitations in the past. PHYSICAL EXAMINATION: GENERAL: At this time shows a large obese man, who appears comfortable. VITAL SIGNS: Afebrile. Normotensive. HEAD, EYES, EARS, NOSE, AND THROAT: Unremarkable. NECK: No jugular venous distention. No bruits. THORAX: Heart sounds S1 and S2 are equal. No murmurs. LUNGS: Clear. ABDOMEN: Protuberant. There is a healed lower midline scar. GENITALS: Edematous. EXTREMITIES: No cyanosis, clubbing, or edema. PERTINENT LABORATORY STUDIES: Show white count 14.6 and hemoglobin 15.6. Glucose 135, BUN 12, creatinine 1.0, and potassium 5.0. ASSESSMENT: 1. Status post penile implant. 2. Hyperglycemia. 3. History of prostate cancer. 4. History of bladder cancer. PLAN: We will monitor glucoses and recheck labs in the morning. He is getting broad-spectrum antibiotics. MD GLENYS Szymanski/GRETCHEN /[id number] cc: MD Dr. Edgar Wood
--- NOTE | 2019-04-27 18:40 | NUR ---
rounded with maintenance supervisor 2nd shift nurse, patient aware of change and in no distress. call rodriguez within reach and bed in lowest position.
[2019-04-28] VITALS (8 sets, daily range): BP systolic 118–150; BP diastolic 63–81
[2019-04-28] MEDS: PIPER-TAZ 3.375 GM 50 ML IV SCH ×3 (05:14→22:06)
[2019-04-28] MEDS: CLINDAMYCIN 600MG / 50ML 50 ML IV SCH ×3 (05:14→21:05)
[2019-04-28 05:24] LABS: BASOPHILS # (AUTO) 0.1 (0.0-0.1); BASOPHILS % 0.5 % (0.0-1.0); EOSINOPHILS # (AUTO) 0.2 (0.0-0.4); EOSINOPHILS % 1.8 % (0.0-6.0); HEMATOCRIT 43.7 % (38.2-49.6); HEMOGLOBIN 14.9 g/dL (14.0-18.0); LYMPHOCYTES # (AUTO) 1.7 (1.0-3.2); LYMPHOCYTES % 17.1 % (18.0-39.1); MEAN CORPUSCULAR HEMOGLOBIN 32.8 pg (28-32); MEAN CORPUSCULAR HGB CONC 34.1 g/dL (31-35); MEAN CORPUSCULAR VOLUME 96.3 fL (81-99); MONOCYTES # (AUTO) 0.9 (0.2-0.8); MONOCYTES % 9.4 % (4.4-11.3); NEUTROPHILS % 70.7 % (38.7-80.0); PLATELET COUNT 194 x10e3/uL (140-360); RED BLOOD COUNT 4.54 x10e6/uL (4.3-5.7)
[2019-04-28 05:44] LABS: ALANINE AMINOTRANSFERASE 28 IU/L (0-55); ALBUMIN 3.4 g/dL (3.5-5.0); ALBUMIN/GLOBULIN RATIO 1.1 (0.8-2.0); ALKALINE PHOSPHATASE 80 IU/L (40-150); BLOOD UREA NITROGEN 13 mg/dL (7-26); BUN/CREATININE RATIO 11 (6-25); CALCIUM 9.3 mg/dL (8.4-10.2); CARBON DIOXIDE 29 mmol/L (22-29); CHLORIDE 104 mmol/L (98-107); CREATININE, SERUM 1.14 mg/dL (0.72-1.25); EST GLOMERULAR FILTRATION RATE > 60 ML/MIN (60-); GLUCOSE 121 mg/dL (74-118); SODIUM 139 mmol/L (136-145)
[2019-04-28] MEDS: DOCUSATE SODIUM 100 MG CAP PO SCH ×2 (09:26→17:36)
[2019-04-28] MEDS: PHENAZOPYRIDINE HCL 100 MG TAB PO SCH ×3 (09:26→17:35)
--- NOTE | 2019-04-28 11:10 | NUR ---
Assisted patient to use restroom, denies any chest pain or SOB, NO DRAINING from surgical site. call light in reach, keep monitoring,
--- NOTE | 2019-04-28 18:40 | NUR ---
Received report from previous nurse. Call light within reach. Patient in bed. No pain or distress.
[2019-04-28] MEDS: D5.45%NS/KCL 20MEQ 1,000 ML IV SCH (21:05)
[2019-04-29 00:02] VITALS: BP 132/80
[2019-04-29 04:31] VITALS: BP 148/83
[2019-04-29 05:36] LABS: BASOPHILS # (AUTO) 0.1 (0.0-0.1); BASOPHILS % 0.5 % (0.0-1.0); EOSINOPHILS # (AUTO) 0.3 (0.0-0.4); EOSINOPHILS % 2.8 % (0.0-6.0); HEMATOCRIT 44.5 % (38.2-49.6); HEMOGLOBIN 15.1 g/dL (14.0-18.0); LYMPHOCYTES # (AUTO) 1.9 (1.0-3.2); LYMPHOCYTES % 20.9 % (18.0-39.1); MEAN CORPUSCULAR HEMOGLOBIN 32.5 pg (28-32); MEAN CORPUSCULAR HGB CONC 33.9 g/dL (31-35); MEAN CORPUSCULAR VOLUME 95.7 fL (81-99); MONOCYTES # (AUTO) 0.9 (0.2-0.8); NEUTROPHILS # (AUTO) 5.9 (2.1-6.9); PLATELET COUNT 210 x10e3/uL (140-360); RED BLOOD COUNT 4.65 x10e6/uL (4.3-5.7); RED CELL DISTRIBUTION WIDTH 13.1 % (11.7-14.4)
[2019-04-29] MEDS: CLINDAMYCIN 600MG / 50ML 50 ML IV SCH (05:41)
[2019-04-29 06:07] LABS: BLOOD UREA NITROGEN 10 mg/dL (7-26); BUN/CREATININE RATIO 10 (6-25); CALCIUM 9.3 mg/dL (8.4-10.2); CARBON DIOXIDE 24 mmol/L (22-29); CHLORIDE 104 mmol/L (98-107); CREATININE, SERUM 0.99 mg/dL (0.72-1.25); EST GLOMERULAR FILTRATION RATE > 60 ML/MIN (60-); GLUCOSE 96 mg/dL (74-118); SODIUM 138 mmol/L (136-145)
[2019-04-29] MEDS: PIPER-TAZ 3.375 GM 50 ML IV SCH (06:22)
[2019-04-29 07:23] VITALS: BP 135/72
--- NOTE | 2019-04-29 07:26 | NUR ---
Gave report to oncoming nurse. Patient in bed. Call light within reach.
[2019-04-29 08:31] VITALS: BP 135/72
[2019-04-29] MEDS: PHENAZOPYRIDINE HCL 100 MG TAB PO SCH (08:42)
[2019-04-29] MEDS: DOCUSATE SODIUM 100 MG CAP PO SCH (08:42)
--- NOTE | 2019-04-29 10:15 | NUR ---
Dr Lowe had rounds, ABIMAEL drain pulled out and put pressure dressing, FORESTRY PILOT pump discontinued, stated patient can go home and f/up with him in 1 month
[2019-04-29] MEDS ORDERED: TYLENOL WITH C1 EACH PO (10:42)
[2019-04-29] MEDS ORDERED: LEVAQUIN500 MG PO (10:43)
--- NOTE | 2019-04-29 11:22 | NUR ---
patient discharged home, incision site dressing is intact, no bleeding, denies any pain, no distress noted, IV canula removed with tip intact, no ss of infiltration noted, at bed side taking home, transported via wheelchair to [facility]
--- NOTE | 2019-04-30 10:17 | Discharge Summary ---
HISTORY: Mr. Simmons is a pleasant 68-year-old man, who was admitted on the for penile prosthesis. HOSPITAL COURSE: He had successful surgery by Dr. Lowe and tolerated well. On the , he was alert, having considerable discomfort and given analgesics and antibiotics and fluids. His glucose was 135 on presentation. White count is 14.6. While he made a point that his twin brother had diabetes, as well as his mother and he felt that he is not. The fingerstick blood sugars were repeated showing glucoses of 121 and 96. The patient made good progress with less swelling, less pain, and on the , he was discharged to home to follow up with Dr. Lowe in the office. DISCHARGE DIAGNOSES: 1. Successful penile prosthesis. 2. History of bladder cancer. 3. History of prostate cancer. 4. Hyperglycemia, mild. MD GLENYS Szymanski/GRETCHEN /[id number] cc: Sven Lowe MD
--- NOTE | 2019-06-08 06:19 | Operative Report ---
DATE OF PROCEDURE: 04/26/2019 SURGEON: Sven Lowe MD PREOPERATIVE DIAGNOSES: 1. Organic impotence. 2. History of bladder cancer. POSTOPERATIVE DIAGNOSES: 1. Organic impotence. 2. History of bladder cancer. OPERATIONS PERFORMED: 1. Cystourethroscopy (separate procedure performed to ensure there was no bladder cancer recurrence). 2. Complicated placement of inflatable penile prosthesis. DAYCARE PROVIDER: Rod Lowe MD COMPLICATIONS: None. ANESTHESIA: General. CLINICAL SUMMARY: Johny Simmons is a complicated 68-year-old man, who has status post radical apparent retropubic prostatectomy along with pelvic lymphadenectomy for prostate cancer. The patient also has developed and treated for bladder cancer. He also underwent what we believed to be BCG immunotherapy. He also has a history of urolithiasis. The patient has an organic impotence and several nonoperative management and elected to proceed with implantation of penile prosthesis. He is aware of the risks of bleeding, infection, injury to adjacent structures and erosion, need for additional procedures, complicated infections, and he elected to proceed. OPERATIVE PROCEDURE IN DETAIL: Informed consent was verified. Johny Simmons was properly identified and taken to the operating room, placed on the operating table in supine position. Anesthesia was uneventfully begun. The patient's abdomen and genitalia were shaved prepared for 10 minutes by the clock and draped in the usual sterile fashion. A flexible cystoscope was then placed under direct vision into the patient's urethra. The urethra was unremarkable. The sphincteric region was normal. The patient's urethrovesical anastomosis seemed to be opened and unobstructed. Panendoscopy of the bladder revealed no suspicious mucosal lesions, no tumors, no stones, no diverticula. No CT evidence of bladder cancer recurrence. Normally positioned configured, ureteral orifices were identified. The cystoscope was withdrawn. Garcia catheter was placed. A transverse upper scrotal incision was then made, carried through all layers until we exposed the corporal cavernosa. We incised both corporal cavernosa and dilated them. Total measurement of 19 cm was measured at each of the corpora. 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 We added 3 cm of rear-tip extenders. We placed cylinders into both corpora cavernosa and tied down all the pre-placed sutures, cavernosa were well sealed. A subdartos pouch was developed for the pump, we placed the pump there as well. We then proceeded with bringing the reservoir to the preperitoneal space. Once we brought the reservoir there we filled it up with 65 mL of sterile saline. We brought the tubing, cut to the shape and cut it to length and utilized the Quick connect system to complete the system. The implant was placed partially inflated following testing. Upon testing, the patient's erection seemed to be excellent. The pump seemed to be functioning appropriately. There was rather significant amount of oozing throughout the case and we felt it is safe to leave a closed suction drain. We left a closed suction drain secured to the skin through a separate stab incision. The patient's incision was then approximated in four layers utilizing chromic sutures. Sterile dressings were applied. The patient was then uneventfully reversed from anesthesia and taken to recovery in stable condition. There were no complications to the procedure. The patient tolerated the procedure well. Sponge, needle, and instrument counts were correct x2 at the end of the case. We will proceed with routine postoperative care and of course ongoing urological followup. Sven Lowe MD [place]/MODL /[id number] cc: Johanny Hernández MD
== END 2019-04-29 11:13 | disposition home or self-care (01) | DRG 710 ==
LOC: OR 11:38 → PACU V 15:10 → IMCU 18:54
PROVIDERS: ADMIT Internal Medicine Cardiovascular Disease; ATTEND Internal Medicine Cardiovascular Disease
PROC: 0VUS0JZ Supplement Penis with Synthetic Substitute, Open Approach (ICD-10-PCS; 2019-04-26)
PROC: 0TJB8ZZ Inspection of Bladder, Via Natural or Artificial Opening Endoscopic (ICD-10-PCS; principal; 2019-04-26 14:00)
DX: N52.9 Male erectile dysfunction, unspecified (principal); Z87.442 Personal history of urinary calculi; Z85.51 Personal history of malignant neoplasm of bladder; E66.9 Obesity, unspecified; Z68.33 Body mass index [BMI] 33.0-33.9, adult; E78.00 Pure hypercholesterolemia, unspecified; N50.0 Atrophy of testis; Z85.46 Personal history of malignant neoplasm of prostate; R73.9 Hyperglycemia, unspecified; Z83.3 Family history of diabetes mellitus; Z88.8 Allergy status to other drugs, medicaments and biological substances; Z01.810 Encounter for preprocedural cardiovascular examination; Z01.812 Encounter for preprocedural laboratory examination; Z01.811 Encounter for preprocedural respiratory examination
CPT/HCPCS: 36415; 71046; 80048; 80053; 83036; 85025; 93005; C1813; J1100; J1580; J2001; J2250; J2270; J2405; J2543; J3010

== ENCOUNTER → 2019-06-22 | Outpatient (CLI) | payer MEDICARE ==
[~2019-06-22] MED LIST changes: +LEVAQUIN500 MG PO
--- NOTE | 2019-06-22 12:13 | Diagnostic Imaging Report ---
Exam: KUB - 2 views Indication: Renal calculus Comparison: KUB of 02/19/2019 Findings: No radiographically apparent renal calculi. Nonobstructive bowel gas pattern. No free air. Status post cholecystectomy. Mild degenerative changes of the spine and both hip joints. Impression: No radiographically apparent renal calculi. Signed by: Jose Coello MD on 06/22/2019 12:09 PM
== END ==
LOC: RAD 10:59
PROVIDERS: ATTEND Urology
DX: N20.0 Calculus of kidney (principal)
CPT/HCPCS: 74018

== ENCOUNTER → 2019-12-21 | Outpatient (CLI) | payer MEDICARE ==
--- NOTE | 2019-12-21 11:09 | Diagnostic Imaging Report ---
EXAM: ABDOMEN-1VIEW (KUB) DATE: 12/21/2019 10:49 AM INDICATION: Kidney stones COMPARISON: 06/22/2019 FINDINGS: Bowel gas pattern is nonobstructive. Bowel gas partially obscures the renal shadows limiting evaluation. No radiographically evident calculi or urinary stones are appreciated. No abnormal intra-abdominal calcification is identified. Cholecystectomy clips noted within the right upper quadrant. Additional surgical clips noted projecting over the pelvis. Stable degenerative changes noted within the lumbar spine and pelvis. No acute osseous abnormalities identified. IMPRESSION: No radiographically evident renal calculi appreciated. Signed by: Dr. Wade Barber MD on 12/21/2019 11:06 AM
== END ==
LOC: RAD 10:29
PROVIDERS: ATTEND Urology
DX: N20.0 Calculus of kidney (principal)
CPT/HCPCS: 74018

== ENCOUNTER → 2020-05-16 | Outpatient (CLI) | payer MEDICARE ==
--- NOTE | 2020-05-16 12:48 | Diagnostic Imaging Report ---
EXAM: ABDOMEN-1VIEW (KUB) DATE: 05/16/2020 12:15 PM INDICATION: Renal calculi. COMPARISON: KUB 12/21/2019. FINDINGS: Nonobstructive bowel gas pattern. No evidence of free intraperitoneal air. Moderate amount of stool in the colon. Bowel gas partially obscures visualization of the kidneys. A 4 mm calcification overlies the left mid pole kidney. Cholecystectomy clips in the right upper quadrant. Surgical clips in the pelvis. No acute osseous abnormality. IMPRESSION: Somewhat limited examination due to bowel gas overlying the kidneys. A 4 mm calcification overlying the left mid pole kidney may represent stone. Signed by: Dr. Rosi Ashby MD on 05/16/2020 12:44 PM
== END ==
LOC: RAD 11:55
PROVIDERS: ATTEND Urology
DX: N20.0 Calculus of kidney (principal)
CPT/HCPCS: 74018

== ENCOUNTER 2021-05-17 01:51 | Emergency (ER) | payer MEDICARE ==
[~2021-05-17] VITALS: Ht 182.9 cm; Wt 113.4 kg
[2021-05-17] MEDS ORDERED: FAMOTIDINE 20 MG/2 ML VIAL IV STA (01:55)
[2021-05-17 02:15] VITALS: BP 111/59
[2021-05-17 02:58] LABS: BASOPHILS % 0.2 % (0.0-1.0); EOSINOPHILS # (AUTO) 0.1 (0.0-0.4); EOSINOPHILS % 0.3 % (0.0-6.0); HEMOGLOBIN 15.8 g/dL (14.0-18.0); LYMPHOCYTES # (AUTO) 0.3 (1.0-3.2); LYMPHOCYTES % 1.6 % (18.0-39.1); MEAN CORPUSCULAR HEMOGLOBIN 32.8 pg (28-32); MEAN CORPUSCULAR HGB CONC 33.6 g/dL (31-35); MEAN CORPUSCULAR VOLUME 97.5 fL (81-99); MONOCYTES # (AUTO) 0.6 (0.2-0.8); MONOCYTES % 3.3 % (4.4-11.3); NEUTROPHILS # (AUTO) 16.9 (2.1-6.9); PLATELET COUNT 197 x10e3/uL (140-360); RED BLOOD COUNT 4.82 x10e6/uL (4.3-5.7); RED CELL DISTRIBUTION WIDTH 12.6 % (11.7-14.4)
[2021-05-17] MEDS ORDERED: DIPHENHYDRAMINE HCL INJ 50 MG/ML VIAL IV ONE (03:00)
[2021-05-17 03:15] LABS: ANION GAP 14.1 mmol/L (8-16); CALCIUM 9.3 mg/dL (8.4-10.2); CREATININE, SERUM 1.22 mg/dL (0.72-1.25); POTASSIUM 4.1 mmol/L (3.5-5.1)
== END 2021-05-17 04:39 | disposition home or self-care (01) ==
LOC: ER 02:01
DX: R21 Rash and other nonspecific skin eruption (principal); T36.8X5A Adverse effect of other systemic antibiotics, initial encounter
CPT/HCPCS: 36415; 80048; 85025; 99283; J1200

== ENCOUNTER → 2022-06-07 | Outpatient (CLI) | payer MEDICARE | LOC: EDSTATUS 12:56 → RAD 13:03 | PROVIDERS: ATTEND Urology | DX: N20.0 Calculus of kidney (principal); Z87.442 Personal history of urinary calculi | CPT/HCPCS: 74018 ==

== ENCOUNTER 2024-03-16 17:31 | Inpatient (IN) | payer MEDICARE, OTHER ==
[~2024-03-16] VITALS: Ht 182.9 cm; Wt 113.4 kg
[2024-03-16 17:35] VITALS: PULSE 85; RESP 17; TEMP 98.2
[2024-03-16 18:15] LABS: BASOPHILS # (AUTO) 0.1 (0.0-0.1); BASOPHILS % 0.5 % (0.0-1.0); EOSINOPHILS # (AUTO) 0.2 (0.0-0.4); EOSINOPHILS % 2.3 % (0.0-6.0); HEMATOCRIT 46.9 % (38.2-49.6); HEMOGLOBIN 16.1 g/dL (14.0-18.0); LYMPHOCYTES # (AUTO) 1.3 (1.0-3.2); LYMPHOCYTES % 12.7 % (18.0-39.1); MEAN CORPUSCULAR HEMOGLOBIN 33.7 pg (28-32); MEAN CORPUSCULAR HGB CONC 34.3 g/dL (31-35); MEAN CORPUSCULAR VOLUME 98.1 fL (81-99); MONOCYTES # (AUTO) 0.9 (0.2-0.8); MONOCYTES % 8.7 % (4.4-11.3); NEUTROPHILS # (AUTO) 7.5 (2.1-6.9); NEUTROPHILS % 74.3 % (38.7-80.0); PLATELET COUNT 246 x10e3/uL (140-360); RED BLOOD COUNT 4.78 x10e6/uL (4.3-5.7); RED CELL DISTRIBUTION WIDTH 12.5 % (11.7-14.4); WHITE BLOOD COUNT 10.09 x10e3/uL (4.8-10.8)
[2024-03-16 18:23] LABS: BILIRUBIN,URINE SMALL (NEGATIVE); CLARITY,URINE SL CLOUDY (CLEAR); COLOR,URINE YELLOW (YELLOW); GLUCOSE, URINE NEGATIVE (NEGATIVE); KETONES,URINE NEGATIVE (NEGATIVE); LEUKOCYTE ESTERASE ,URINE NEGATIVE (NEGATIVE); NITRITE,URINE NEGATIVE (NEGATIVE); PH,URINE 5.5 (5 - 7); PROTEIN,URINE DIPSTICK 2+ (NEGATIVE); URINE UROBILINOGEN 0.2 mg/dL (0.2 - 1)
[2024-03-16 18:30] LABS: ALBUMIN 3.6 g/dL (3.5-5.0); ALBUMIN/GLOBULIN RATIO 0.8 (0.8-2.0); ANION GAP 15.6 mmol/L (8-16); BILIRUBIN,TOTAL 0.9 mg/dL (0.2-1.2); CALCIUM 9.6 mg/dL (8.4-10.2); CREATININE, SERUM 1.24 mg/dL (0.72-1.25); POTASSIUM 3.6 mmol/L (3.5-5.1); TOTAL PROTEIN 7.9 g/dL (6.5-8.1)
[2024-03-16 18:37] LABS: AMORPHOUS SEDIMENT,URINE FEW (FEW); BACTERIA,URINE MODERATE /HPF; HYALINE CASTS 0-1 (0-1); WBC,URINE (MAN) 0-5 /HPF (0-5)
[2024-03-16] MEDS: KETOROLAC TROMETHAMINE 30 MG/ML VIAL IV STA (18:57)
[2024-03-16] MEDS: SODIUM CHLORIDE 0.9% 1000ML 1,000 ML IV STA (18:58)
[2024-03-16] MEDS ORDERED: ONDANSETRON HCL INJ 2MG/ML 2ML 2 MG/ML VIAL IV PRN (19:00)
[2024-03-16 20:41] VITALS: BP_SYST 168; BP_DIAS 79; BP_DIAS 83; PULSE 100; RESP 18; RESP 20; TEMP 98.4; O2SAT 98
[2024-03-16 21:00] VITALS: BP 179/78; PULSE 100; RESP 19; TEMP 98.1; O2SAT 95
[2024-03-16] MEDS ORDERED: CLONIDINE HCL 0.1 MG TAB PO PRN (22:15)
[2024-03-17] VITALS (8 sets, daily range): BP systolic 137–166; BP diastolic 73–85; PULSE 76–89; RESP 18; TEMP 97.8–100.4; O2SAT 95–96
[2024-03-17] MEDS: SODIUM CHLORIDE 0.9% 1000ML 1,000 ML IV SCH (00:23)
[2024-03-17] MEDS ORDERED: ACETAMINOPHEN 325 MG TAB PO PRN (04:30)
[2024-03-17 07:07] LABS: BASOPHILS # (AUTO) 0.1 (0.0-0.1); BASOPHILS % 0.5 % (0.0-1.0); EOSINOPHILS # (AUTO) 0.3 (0.0-0.4); EOSINOPHILS % 2.7 % (0.0-6.0); HEMATOCRIT 44.1 % (38.2-49.6); HEMOGLOBIN 14.5 g/dL (14.0-18.0); LYMPHOCYTES % 10.3 % (18.0-39.1); MEAN CORPUSCULAR HEMOGLOBIN 32.9 pg (28-32); MEAN CORPUSCULAR HGB CONC 32.9 g/dL (31-35); MONOCYTES % 10.4 % (4.4-11.3); NEUTROPHILS # (AUTO) 7.3 (2.1-6.9); NEUTROPHILS % 74.8 % (38.7-80.0); PLATELET COUNT 199 x10e3/uL (140-360); RED BLOOD COUNT 4.41 x10e6/uL (4.3-5.7); RED CELL DISTRIBUTION WIDTH 12.4 % (11.7-14.4); WHITE BLOOD COUNT 9.78 x10e3/uL (4.8-10.8)
[2024-03-17 07:55] LABS: ALBUMIN/GLOBULIN RATIO 0.9 (0.8-2.0); ANION GAP 14.8 mmol/L (8-16); CALCIUM 8.6 mg/dL (8.4-10.2); CREATININE, SERUM 1.55 mg/dL (0.72-1.25); POTASSIUM 3.8 mmol/L (3.5-5.1); TOTAL PROTEIN 6.5 g/dL (6.5-8.1)
[2024-03-17] MEDS: Morphine 4mg INJECTION 4 MG/ML INJ IV PRN (09:58)
[2024-03-17] MEDS ORDERED: HYDRALAZINE HCL 20 MG/ML VIAL IV PRN (12:15)
[2024-03-17] MEDS: CIPROFLOXACIN 400 MG/D5W 200ML 200 ML IV SCH (13:36)
[2024-03-17] MEDS: ATORVASTATIN 20 MG TAB PO SCH (22:14)
[2024-03-18] VITALS (8 sets, daily range): BP systolic 142–171; BP diastolic 72–80; PULSE 70–82; RESP 17–20; TEMP 98.1–98.7; O2SAT 95–97
[2024-03-18 05:42] LABS: BASOPHILS # (AUTO) 0.1 (0.0-0.1); BASOPHILS % 0.7 % (0.0-1.0); EOSINOPHILS # (AUTO) 0.4 (0.0-0.4); EOSINOPHILS % 4.2 % (0.0-6.0); HEMATOCRIT 40.7 % (38.2-49.6); HEMOGLOBIN 13.6 g/dL (14.0-18.0); LYMPHOCYTES # (AUTO) 1.2 (1.0-3.2); LYMPHOCYTES % 14.8 % (18.0-39.1); MEAN CORPUSCULAR HEMOGLOBIN 33.1 pg (28-32); MEAN CORPUSCULAR HGB CONC 33.4 g/dL (31-35); MONOCYTES # (AUTO) 0.7 (0.2-0.8); NEUTROPHILS # (AUTO) 5.8 (2.1-6.9); NEUTROPHILS % 69.7 % (38.7-80.0); PLATELET COUNT 200 x10e3/uL (140-360); RED BLOOD COUNT 4.11 x10e6/uL (4.3-5.7); RED CELL DISTRIBUTION WIDTH 12.2 % (11.7-14.4); WHITE BLOOD COUNT 8.25 x10e3/uL (4.8-10.8)
[2024-03-18 06:18] LABS: ANION GAP 12.8 mmol/L (8-16); CALCIUM 8.7 mg/dL (8.4-10.2); CREATININE, SERUM 1.67 mg/dL (0.72-1.25); POTASSIUM 3.8 mmol/L (3.5-5.1)
[2024-03-18 14:16] LABS: CLARITY,URINE CLEAR (CLEAR); COLOR,URINE YELLOW (YELLOW); GLUCOSE, URINE NEGATIVE (NEGATIVE); KETONES,URINE NEGATIVE (NEGATIVE); LEUKOCYTE ESTERASE ,URINE NEGATIVE (NEGATIVE); NITRITE,URINE NEGATIVE (NEGATIVE); PH,URINE 6 (5 - 7); PROTEIN,URINE DIPSTICK NEGATIVE (NEGATIVE); URINE UROBILINOGEN 0.2 mg/dL (0.2 - 1)
[2024-03-18 14:17] LABS: BILIRUBIN,URINE NEGATIVE (NEGATIVE)
[2024-03-18 14:23] LABS: BACTERIA,URINE RARE /HPF; EPITHELIAL CELLS,URINE RARE /LPF; WBC,URINE (MAN) 0-5 /HPF (0-5)
[2024-03-19] VITALS (8 sets, daily range): BP systolic 107–195; BP diastolic 80–99; PULSE 70–84; RESP 18–21; TEMP 97.7–99.1; O2SAT 94–98
[2024-03-19 06:29] LABS: ANION GAP 12.1 mmol/L (8-16); CALCIUM 8.8 mg/dL (8.4-10.2); CREATININE, SERUM 1.81 mg/dL (0.72-1.25); POTASSIUM 4.1 mmol/L (3.5-5.1)
[2024-03-19] MEDS ORDERED: ONDANSETRON HCL 4 MG ORAL DISINTEGRATING TAB PO PRN (10:45)
[2024-03-19] MEDS ORDERED: FENTANYL CITRATE/PF 100MCG/2 ML INJ ONE (11:34)
[2024-03-19] MEDS ORDERED: KETOROLAC TROMETHAMINE 30 MG/ML VIAL ONE (12:10)
[2024-03-19] MEDS ORDERED: SEVOFLURANE INHAL SOLN 250 ML PEN BTL ONE (12:10)
[2024-03-19] MEDS ORDERED: LIDOCAINE HCL 2% LOCAL INJ 5 ML SDV VIAL INJ ONE (12:10)
[2024-03-19] MEDS ORDERED: PROPOFOL IV EMULSION 10 MG/ML 20 ML VIAL ONE (12:10)
[2024-03-19] MEDS ORDERED: ONDANSETRON HCL INJ 2MG/ML 2ML 2 MG/ML VIAL ONE (12:10)
[2024-03-19] MEDS ORDERED: SUCCINYLCHOLINE CHLORIDE 20 MG/ML 10ML VIAL ONE (12:10)
[2024-03-19] MEDS ORDERED: DEXAMETHASONE SOD PHOS INJ 4 MG/ML SDV ONE (12:10)
[2024-03-19] MEDS ORDERED: IOPAMIDOL 610MG/1ML 300 MG/ML VIAL IV ONE (17:54)
[2024-03-19] MEDS ORDERED: PHENAZOPYRIDINE HCL 100 MG TAB PO PRN (18:00)
[2024-03-19] MEDS ORDERED: ACETAMINOPHEN/CODEINE 300MG - 30MG TAB PO PRN (18:00)
[2024-03-20] VITALS: BP 145/84; PULSE 84; RESP 18; TEMP 97.9; O2SAT 98
[2024-03-20 04:00] VITALS: BP 132/83; PULSE 76; RESP 20; TEMP 97.9; O2SAT 95
[2024-03-20 08:00] VITALS: BP 148/79; PULSE 71; RESP 17; RESP 18; TEMP 97.6; O2SAT 97
[2024-03-20 08:04] LABS: BASOPHILS # (AUTO) 0.1 (0.0-0.1); BASOPHILS % 0.5 % (0.0-1.0); EOSINOPHILS % 0.2 % (0.0-6.0); HEMATOCRIT 44.1 % (38.2-49.6); HEMOGLOBIN 14.8 g/dL (14.0-18.0); LYMPHOCYTES # (AUTO) 0.8 (1.0-3.2); LYMPHOCYTES % 6.5 % (18.0-39.1); MEAN CORPUSCULAR HGB CONC 33.6 g/dL (31-35); MEAN CORPUSCULAR VOLUME 98.2 fL (81-99); MONOCYTES # (AUTO) 0.9 (0.2-0.8); MONOCYTES % 7.4 % (4.4-11.3); NEUTROPHILS % 84.6 % (38.7-80.0); PLATELET COUNT 257 x10e3/uL (140-360); RED BLOOD COUNT 4.49 x10e6/uL (4.3-5.7); RED CELL DISTRIBUTION WIDTH 11.9 % (11.7-14.4)
[2024-03-20 08:24] LABS: ANION GAP 14.3 mmol/L (8-16); CALCIUM 8.9 mg/dL (8.4-10.2); CREATININE, SERUM 1.11 mg/dL (0.72-1.25); POTASSIUM 4.3 mmol/L (3.5-5.1)
[2024-03-20] MEDS: SOLIFENACIN SUCCINATE 5 MG TAB PO SCH (08:54)
[2024-03-20 12:00] VITALS: BP 119/75; PULSE 72; RESP 18; TEMP 98.1; O2SAT 95
[2024-03-20 20:00] VITALS: BP 149/80; PULSE 72; RESP 20; TEMP 98; O2SAT 99
[2024-03-21] VITALS: BP 131/75; PULSE 69; RESP 18; TEMP 98.4; O2SAT 99
[2024-03-21 04:00] VITALS: BP 140/88; PULSE 78; RESP 18; TEMP 97.8; O2SAT 97
[2024-03-21 07:10] LABS: CALCIUM 8.6 mg/dL (8.6-10.2)
[2024-03-21 07:44] VITALS: BP 137/83; PULSE 68; RESP 16; TEMP 98.5; O2SAT 100
[2024-03-21 07:46] VITALS: BP 137/83; PULSE 68; RESP 16; TEMP 98.5; O2SAT 100
[2024-03-21 07:46] LABS: BASOPHILS # (AUTO) 0.1 (0.0-0.1); BASOPHILS % 0.7 % (0.0-1.0); EOSINOPHILS # (AUTO) 0.3 (0.0-0.4); EOSINOPHILS % 3.6 % (0.0-6.0); HEMATOCRIT 44.6 % (38.2-49.6); HEMOGLOBIN 14.7 g/dL (14.0-18.0); LYMPHOCYTES # (AUTO) 1.6 (1.0-3.2); LYMPHOCYTES % 22.4 % (18.0-39.1); MEAN CORPUSCULAR HEMOGLOBIN 32.8 pg (28-32); MEAN CORPUSCULAR VOLUME 99.6 fL (81-99); MONOCYTES # (AUTO) 0.6 (0.2-0.8); MONOCYTES % 8.5 % (4.4-11.3); NEUTROPHILS # (AUTO) 4.6 (2.1-6.9); NEUTROPHILS % 62.6 % (38.7-80.0); PLATELET COUNT 256 x10e3/uL (140-360); RED BLOOD COUNT 4.48 x10e6/uL (4.3-5.7); WHITE BLOOD COUNT 7.31 x10e3/uL (4.8-10.8)
[2024-03-21 08:12] LABS: CALCIUM 8.7 mg/dL (8.4-10.2); CREATININE, SERUM 1.03 mg/dL (0.72-1.25)
[2024-03-21 12:00] VITALS: BP 147/78; PULSE 71; RESP 18; TEMP 97.6; O2SAT 97
== END 2024-03-21 13:33 | disposition home or self-care (01) | DRG 661 ==
LOC: ER 18:02 → ERHOLD 19:13 → MED/SURG3 20:37
PROVIDERS: ADMIT Internal Medicine; ATTEND Internal Medicine
PROC: BT141ZZ Fluoroscopy of Kidneys, Ureters and Bladder using Low Osmolar Contrast (ICD-10-PCS; 2024-03-19)
PROC: 0TC68ZZ Extirpation of Matter from Right Ureter, Via Natural or Artificial Opening Endoscopic (ICD-10-PCS; 2024-03-19)
PROC: 0T768DZ Dilation of Right Ureter with Intraluminal Device, Via Natural or Artificial Opening Endoscopic (ICD-10-PCS; principal; 2024-03-19 17:38)
DX: N13.2 Hydronephrosis with renal and ureteral calculous obstruction (principal); N17.9 Acute kidney failure, unspecified; R03.0 Elevated blood-pressure reading, without diagnosis of hypertension; E78.00 Pure hypercholesterolemia, unspecified; E66.9 Obesity, unspecified; Z68.33 Body mass index [BMI] 33.0-33.9, adult; Z71.3 Dietary counseling and surveillance; Z11.52 Encounter for screening for COVID-19; Z79.899 Other long term (current) drug therapy; Z85.51 Personal history of malignant neoplasm of bladder; Z85.46 Personal history of malignant neoplasm of prostate; Z90.79 Acquired absence of other genital organ(s); Z96.0 Presence of urogenital implants
CPT/HCPCS: 36415; 74018; 74176; 74420; 80048; 80053; 81001; 83970; 84550; 85025; 88300; 99284; C1758; C1769; C2617; J0330; J1100; J1885; J2001; J2270; J2405; J7030; U0002

== ENCOUNTER → 2024-05-07 | Day surgery (SDC) | payer OTHER ==
[2024-05-06 09:44] LABS: BASOPHILS # (AUTO) 0.1 (0.0-0.1); BASOPHILS % 1.1 % (0.0-1.0); EOSINOPHILS # (AUTO) 0.3 (0.0-0.4); EOSINOPHILS % 4.3 % (0.0-6.0); HEMATOCRIT 47.8 % (38.2-49.6); HEMOGLOBIN 15.9 g/dL (14.0-18.0); LYMPHOCYTES # (AUTO) 1.1 (1.0-3.2); LYMPHOCYTES % 15.2 % (18.0-39.1); MEAN CORPUSCULAR HEMOGLOBIN 33.1 pg (28-32); MEAN CORPUSCULAR HGB CONC 33.3 g/dL (31-35); MEAN CORPUSCULAR VOLUME 99.4 fL (81-99); MONOCYTES # (AUTO) 0.5 (0.2-0.8); MONOCYTES % 6.9 % (4.4-11.3); NEUTROPHILS # (AUTO) 5.3 (2.1-6.9); NEUTROPHILS % 71.4 % (38.7-80.0); PLATELET COUNT 203 x10e3/uL (140-360); RED BLOOD COUNT 4.81 x10e6/uL (4.3-5.7); RED CELL DISTRIBUTION WIDTH 12.8 % (11.7-14.4); WHITE BLOOD COUNT 7.39 x10e3/uL (4.8-10.8)
[2024-05-06 12:46] LABS: ANION GAP 14.8 mmol/L (8-16); CALCIUM 9.4 mg/dL (8.4-10.2); CREATININE, SERUM 1.16 mg/dL (0.72-1.25); POTASSIUM 3.8 mmol/L (3.5-5.1)
[~2024-05-07] MED LIST changes: +FENTANYL CITRATE/PF 100MCG/2 ML INJ ONE; +IOPAMIDOL 610MG/1ML 300 MG/ML VIAL IV ONE; +LIDOCAINE HCL 2% LOCAL INJ 5 ML SDV VIAL INJ ONE; +MULTI-VITAMIN1 EACH PO; +ONDANSETRON HCL INJ 2MG/ML 2ML 2 MG/ML VIAL IV ONE; +PROPOFOL IV EMULSION 10 MG/ML 20 ML VIAL IV ONE; +SEVOFLURANE INHAL SOLN 250 ML PEN BTL INH ONE; +VESICARE5 MG PO
[2024-05-07] MEDS: LACTATED RINGER'S 1,000 ML ONE (12:04)
[2024-05-07] MEDS: GENTAMICIN 80MG/NS 100 ML 200 ML IV ONE (12:04)
[2024-05-07 13:46] VITALS: TEMP 98.2
[2024-05-07] MEDS: PHENAZOPYRIDINE HCL 100 MG TAB ONE (14:25)
[2024-05-07 14:48] VITALS: BP 158/86; PULSE 70; RESP 18; O2SAT 97
== END | disposition home or self-care (01) ==
LOC: OR 10:05
PROVIDERS: ATTEND Urology
DX: N20.1 Calculus of ureter (principal); Z46.6 Encounter for fitting and adjustment of urinary device; C67.9 Malignant neoplasm of bladder, unspecified; N32.89 Other specified disorders of bladder; N28.89 Other specified disorders of kidney and ureter; N20.0 Calculus of kidney; N13.30 Unspecified hydronephrosis; N39.3 Stress incontinence (female) (male); N47.5 Adhesions of prepuce and glans penis; N52.9 Male erectile dysfunction, unspecified; N50.0 Atrophy of testis; E29.1 Testicular hypofunction; Z85.46 Personal history of malignant neoplasm of prostate; E66.9 Obesity, unspecified; Z88.0 Allergy status to penicillin; Z01.810 Encounter for preprocedural cardiovascular examination; Z01.812 Encounter for preprocedural laboratory examination; Z01.818 Encounter for other preprocedural examination; Z68.35 Body mass index [BMI] 35.0-35.9, adult; Z87.19 Personal history of other diseases of the digestive system; Z80.42 Family history of malignant neoplasm of prostate; Z80.52 Family history of malignant neoplasm of bladder
CPT/HCPCS: 36415; 52351; 71046; 74018; 74420; 80048; 84550; 85025; 87086; 93005; C1758; C1769; J1580; J2001; J2405; J2704; J3010; J7121; Q9967

== ENCOUNTER → 2024-10-15 | Outpatient (REF) | payer MEDICARE ==
[~2024-10-15] MED LIST changes: -FENTANYL CITRATE/PF 100MCG/2 ML INJ ONE; -IOPAMIDOL 610MG/1ML 300 MG/ML VIAL IV ONE; -LIDOCAINE HCL 2% LOCAL INJ 5 ML SDV VIAL INJ ONE; -ONDANSETRON HCL INJ 2MG/ML 2ML 2 MG/ML VIAL IV ONE; -PROPOFOL IV EMULSION 10 MG/ML 20 ML VIAL IV ONE; -SEVOFLURANE INHAL SOLN 250 ML PEN BTL INH ONE
== END ==
LOC: RAD 13:35
PROVIDERS: ATTEND Family Medicine
DX: M25.552 Pain in left hip (principal); M79.652 Pain in left thigh

== ENCOUNTER 2024-12-08 21:55 | Inpatient (IN) | payer OTHER ==
[~2024-12-08] VITALS: Ht 182.9 cm; Wt 115.7 kg
[~2024-12-08 21:55] MED LIST changes: +SEVOFLURANE INHAL SOLN 250 ML PEN BTL ONE
[2024-12-08 22:43] LABS: BASOPHILS # (AUTO) 0.1 (0.0-0.1); BASOPHILS % 0.6 % (0.0-1.0); EOSINOPHILS # (AUTO) 0.2 (0.0-0.4); EOSINOPHILS % 1.6 % (0.0-6.0); HEMATOCRIT 47.5 % (38.2-49.6); HEMOGLOBIN 16.3 g/dL (14.0-18.0); LYMPHOCYTES # (AUTO) 1.7 (1.0-3.2); LYMPHOCYTES % 14.2 % (18.0-39.1); MEAN CORPUSCULAR HEMOGLOBIN 33.3 pg (28-32); MEAN CORPUSCULAR HGB CONC 34.3 g/dL (31-35); MEAN CORPUSCULAR VOLUME 96.9 fL (81-99); MONOCYTES # (AUTO) 0.9 (0.2-0.8); MONOCYTES % 7.8 % (4.4-11.3); NEUTROPHILS # (AUTO) 8.8 (2.1-6.9); NEUTROPHILS % 75.4 % (38.7-80.0); PLATELET COUNT 244 x10e3/uL (140-360); RED CELL DISTRIBUTION WIDTH 12.8 % (11.7-14.4); WHITE BLOOD COUNT 11.64 x10e3/uL (4.8-10.8)
[2024-12-08 22:59] LABS: ALBUMIN 4.3 g/dL (3.5-5.0); ALBUMIN/GLOBULIN RATIO 1.3 (0.8-2.0); ANION GAP 15.5 mmol/L (8-16); BILIRUBIN,TOTAL 0.9 mg/dL (0.2-1.2); CALCIUM 9.5 mg/dL (8.4-10.2); CREATININE, SERUM 1.04 mg/dL (0.72-1.25); POTASSIUM 4.5 mmol/L (3.5-5.1); TOTAL PROTEIN 7.5 g/dL (6.5-8.1)
[2024-12-08 23:01] LABS: BILIRUBIN,URINE NEGATIVE (NEGATIVE); CLARITY,URINE CLOUDY (CLEAR); COLOR,URINE AMBER (YELLOW); GLUCOSE, URINE NEGATIVE (NEGATIVE); KETONES,URINE 1+ (NEGATIVE); LEUKOCYTE ESTERASE ,URINE NEGATIVE (NEGATIVE); NITRITE,URINE NEGATIVE (NEGATIVE); PH,URINE 5.5 (5 - 7); PROTEIN,URINE DIPSTICK 2+ (NEGATIVE); URINE UROBILINOGEN 0.2 mg/dL (0.2 - 1)
[2024-12-08 23:05] LABS: BACTERIA,URINE MODERATE /HPF; EPITHELIAL CELLS,URINE MANY /LPF; RBC,URINE >50 /HPF (0-5); TRANSITIONAL EPI CELLS,URINE MODERATE
[2024-12-08] MEDS: SODIUM CHLORIDE 0.9% 1000ML 1,000 ML IV STA (23:23)
[2024-12-08] MEDS: KETOROLAC TROMETHAMINE 30 MG/ML VIAL IV STA (23:23)
[2024-12-08] MEDS: ONDANSETRON HCL 4 MG ORAL DISINTEGRATING TAB PO STA (23:24)
[2024-12-08] MEDS ORDERED: Morphine 4mg INJECTION 4 MG/ML INJ IV PRN (23:45)
[2024-12-08] MEDS ORDERED: KETOROLAC TROMETHAMINE 30 MG/ML VIAL IV PRN (23:45)
[2024-12-08] MEDS ORDERED: ONDANSETRON HCL INJ 2MG/ML 2ML 2 MG/ML VIAL IV PRN (23:45)
[2024-12-08] MEDS: ONDANSETRON HCL INJ 2MG/ML 2ML 2 MG/ML VIAL IV STA (23:51)
[2024-12-09] VITALS (8 sets, daily range): BP systolic 136–152; BP diastolic 67–87; PULSE 62–84; RESP 16–20; TEMP 97–98.6; O2SAT 95–100
[2024-12-09] MEDS: SODIUM CHLORIDE 0.9% 1000ML 1,000 ML IV SCH (01:35)
[2024-12-09] MEDS: CIPROFLOXACIN 400 MG/D5W 200ML 200 ML IV SCH (01:35)
[2024-12-09 05:48] LABS: BASOPHILS # (AUTO) 0.1 (0.0-0.1); BASOPHILS % 0.9 % (0.0-1.0); EOSINOPHILS # (AUTO) 0.2 (0.0-0.4); EOSINOPHILS % 3.7 % (0.0-6.0); HEMOGLOBIN 14.3 g/dL (14.0-18.0); LYMPHOCYTES # (AUTO) 1.4 (1.0-3.2); MEAN CORPUSCULAR HEMOGLOBIN 33.2 pg (28-32); MEAN CORPUSCULAR VOLUME 97.4 fL (81-99); MONOCYTES # (AUTO) 0.7 (0.2-0.8); MONOCYTES % 10.3 % (4.4-11.3); NEUTROPHILS # (AUTO) 4.1 (2.1-6.9); NEUTROPHILS % 63.5 % (38.7-80.0); PLATELET COUNT 197 x10e3/uL (140-360); RED BLOOD COUNT 4.31 x10e6/uL (4.3-5.7); RED CELL DISTRIBUTION WIDTH 12.7 % (11.7-14.4); WHITE BLOOD COUNT 6.43 x10e3/uL (4.8-10.8)
[2024-12-09 06:17] LABS: ALBUMIN 3.6 g/dL (3.5-5.0); ALBUMIN/GLOBULIN RATIO 1.3 (0.8-2.0); ANION GAP 13.6 mmol/L (8-16); BILIRUBIN,TOTAL 0.9 mg/dL (0.2-1.2); CALCIUM 8.4 mg/dL (8.4-10.2); CREATININE, SERUM 0.94 mg/dL (0.72-1.25); POTASSIUM 3.6 mmol/L (3.5-5.1); TOTAL PROTEIN 6.3 g/dL (6.5-8.1)
[2024-12-09] MEDS ORDERED: MELOXICAM7.5 MG PO (08:33)
[2024-12-10 03:43] VITALS: BP 144/112; PULSE 69; RESP 18; TEMP 97.6; O2SAT 99
[2024-12-10 05:03] LABS: BASOPHILS # (AUTO) 0.1 (0.0-0.1); BASOPHILS % 1.1 % (0.0-1.0); EOSINOPHILS # (AUTO) 0.3 (0.0-0.4); EOSINOPHILS % 4.1 % (0.0-6.0); HEMATOCRIT 44.2 % (38.2-49.6); HEMOGLOBIN 14.8 g/dL (14.0-18.0); LYMPHOCYTES # (AUTO) 1.1 (1.0-3.2); LYMPHOCYTES % 16.8 % (18.0-39.1); MEAN CORPUSCULAR HEMOGLOBIN 33.3 pg (28-32); MEAN CORPUSCULAR HGB CONC 33.5 g/dL (31-35); MEAN CORPUSCULAR VOLUME 99.3 fL (81-99); MONOCYTES # (AUTO) 0.5 (0.2-0.8); MONOCYTES % 7.8 % (4.4-11.3); NEUTROPHILS # (AUTO) 4.6 (2.1-6.9); NEUTROPHILS % 69.7 % (38.7-80.0); PLATELET COUNT 168 x10e3/uL (140-360); RED BLOOD COUNT 4.45 x10e6/uL (4.3-5.7); RED CELL DISTRIBUTION WIDTH 12.7 % (11.7-14.4); WHITE BLOOD COUNT 6.65 x10e3/uL (4.8-10.8)
[2024-12-10 05:28] LABS: ANION GAP 11.8 mmol/L (8-16); CALCIUM 8.5 mg/dL (8.4-10.2); CREATININE, SERUM 0.8 mg/dL (0.72-1.25); POTASSIUM 3.8 mmol/L (3.5-5.1)
[2024-12-10] MEDS: PANTOPRAZOLE SOD 40 MG TABEC PO SCH (07:30)
[2024-12-10 08:13] VITALS: BP 137/81; PULSE 73; RESP 18; TEMP 97.7; O2SAT 98
[2024-12-10 11:21] VITALS: BP 151/76; PULSE 67; RESP 18; TEMP 98; O2SAT 99
[2024-12-10 16:18] VITALS: BP 147/71; PULSE 81; RESP 18; TEMP 98.3; O2SAT 98
[2024-12-10] MEDS ORDERED: LIDOCAINE HCL 2% LOCAL INJ 5 ML SDV VIAL INJ ONE (17:49)
[2024-12-10] MEDS ORDERED: FENTANYL CITRATE/PF 100MCG/2 ML INJ ONE (17:49)
[2024-12-10] MEDS ORDERED: PROPOFOL IV EMULSION 10 MG/ML 20 ML VIAL ONE (17:51)
[2024-12-10] MEDS ORDERED: ONDANSETRON HCL INJ 2MG/ML 2ML 2 MG/ML VIAL ONE (18:40)
[2024-12-10] MEDS ORDERED: KETOROLAC TROMETHAMINE 30 MG/ML VIAL ONE (18:40)
[2024-12-10] MEDS ORDERED: DEXAMETHASONE SOD PHOS INJ 4 MG/ML SDV ONE (18:40)
[2024-12-10] MEDS ORDERED: Morphine 10mg syringe 10 MG/ML INJ ONE (18:47)
[2024-12-10] MEDS ORDERED: PHENAZOPYRIDINE HCL 100 MG TAB PO PRN (19:00)
[2024-12-10] MEDS ORDERED: ACETAMINOPHEN/CODEINE 300MG - 30MG TAB PO PRN (19:00)
[2024-12-10 20:00] VITALS: BP 143/77; PULSE 79; RESP 18; TEMP 98.3; O2SAT 94
[2024-12-10 20:03] VITALS: BP 159/84; PULSE 81; RESP 18; TEMP 97.7; O2SAT 95
[2024-12-11 03:55] VITALS: BP 142/89; PULSE 67; RESP 18; TEMP 98.3; O2SAT 97
[2024-12-11 09:06] VITALS: BP 159/79; PULSE 78; RESP 20; TEMP 98.1; O2SAT 99
[2024-12-11] MEDS: SOLIFENACIN SUCCINATE 5 MG TAB PO SCH (10:18)
[2024-12-11] MEDS ORDERED: TYLENOL#3 PO (12:26)
[2024-12-11] MEDS ORDERED: VESICARE10 MG PO (12:27)
== END 2024-12-11 13:15 | disposition home or self-care (01) | DRG 660 ==
LOC: ER 22:05 → ERHOLD 23:42 → MED/SURG 12-09 07:47
PROVIDERS: ADMIT Internal Medicine; ATTEND Internal Medicine
PROC: BT141ZZ Fluoroscopy of Kidneys, Ureters and Bladder using Low Osmolar Contrast (ICD-10-PCS; 2024-12-10)
PROC: 0T788DZ Dilation of Bilateral Ureters with Intraluminal Device, Via Natural or Artificial Opening Endoscopic (ICD-10-PCS; principal; 2024-12-10 18:30)
DX: N20.0 Calculus of kidney (principal); N39.0 Urinary tract infection, site not specified; R31.0 Gross hematuria; R80.9 Proteinuria, unspecified; R31.29 Other microscopic hematuria; E78.5 Hyperlipidemia, unspecified; G89.29 Other chronic pain; Z85.46 Personal history of malignant neoplasm of prostate; Z90.79 Acquired absence of other genital organ(s); Z85.51 Personal history of malignant neoplasm of bladder; Z90.6 Acquired absence of other parts of urinary tract; Z88.8 Allergy status to other drugs, medicaments and biological substances; Z88.0 Allergy status to penicillin; Z79.899 Other long term (current) drug therapy
CPT/HCPCS: 36415; 74018; 74176; 74420; 80048; 80053; 81001; 83690; 85025; 87086; 99284; C1758; C2617; J1100; J1885; J2003; J2270; J2405; J2470; J7030

== ENCOUNTER → 2025-01-05 | Day surgery (SDC) | payer OTHER ==
[2024-12-31 10:50] LABS: BASOPHILS # (AUTO) 0.1 (0.0-0.1); BASOPHILS % 0.9 % (0.0-1.0); EOSINOPHILS # (AUTO) 0.8 (0.0-0.4); HEMATOCRIT 46.7 % (38.2-49.6); HEMOGLOBIN 16.2 g/dL (14.0-18.0); LYMPHOCYTES # (AUTO) 1.1 (1.0-3.2); LYMPHOCYTES % 12.7 % (18.0-39.1); MEAN CORPUSCULAR HEMOGLOBIN 33.4 pg (28-32); MEAN CORPUSCULAR HGB CONC 34.7 g/dL (31-35); MEAN CORPUSCULAR VOLUME 96.3 fL (81-99); MONOCYTES # (AUTO) 0.6 (0.2-0.8); MONOCYTES % 7.3 % (4.4-11.3); NEUTROPHILS % 69.3 % (38.7-80.0); PLATELET COUNT 227 x10e3/uL (140-360); RED BLOOD COUNT 4.85 x10e6/uL (4.3-5.7); RED CELL DISTRIBUTION WIDTH 12.5 % (11.7-14.4); WHITE BLOOD COUNT 8.59 x10e3/uL (4.8-10.8)
[2024-12-31 11:18] LABS: ANION GAP 16.4 mmol/L (8-16); CALCIUM 9.1 mg/dL (8.4-10.2); CREATININE, SERUM 1.21 mg/dL (0.72-1.25); POTASSIUM 4.4 mmol/L (3.5-5.1)
[~2025-01-05] MED LIST changes: +ACETAMINOPHEN 1000 MG/100 ML 100 ML IV ONE; +ACETAMINOPHEN/CODEINE 300MG - 30MG TAB ONE; +DEXAMETHASONE SOD PHOS INJ 4 MG/ML SDV ONE; +FENTANYL CITRATE/PF 100MCG/2 ML INJ ONE; +LIDOCAINE HCL 2% LOCAL INJ 5 ML SDV VIAL INJ ONE; +MELOXICAM7.5 MG PO; +ONDANSETRON HCL INJ 2MG/ML 2ML 2 MG/ML VIAL ONE; +PROPOFOL IV EMULSION 10 MG/ML 20 ML VIAL ONE; +TYLENOL#3 PO; +VESICARE10 MG PO
[2025-01-05] MEDS: SODIUM CHLORIDE 0.9% 1000ML 1,000 ML ONE (09:13)
[2025-01-05] MEDS: GENTAMICIN 80MG/NS 100 ML 200 ML IV ONE (09:13)
[2025-01-05] MEDS: PHENAZOPYRIDINE HCL 100 MG TAB ONE (14:28)
[2025-01-05] MEDS: ACETAMINOPHEN/CODEINE 300MG - 30MG TAB PO ONE (14:53)
[2025-01-05 15:10] VITALS: BP 147/73; PULSE 75; RESP 16; O2SAT 96
== END | disposition home or self-care (01) ==
LOC: OR 08:32
PROVIDERS: ATTEND Urology
DX: N20.0 Calculus of kidney (principal); Z46.6 Encounter for fitting and adjustment of urinary device; N13.30 Unspecified hydronephrosis; N40.0 Benign prostatic hyperplasia without lower urinary tract symptoms; N32.89 Other specified disorders of bladder; E78.5 Hyperlipidemia, unspecified; K57.92 Diverticulitis of intestine, part unspecified, without perforation or abscess without bleeding; Z88.0 Allergy status to penicillin; Z91.048 Other nonmedicinal substance allergy status; Z01.810 Encounter for preprocedural cardiovascular examination; Z01.812 Encounter for preprocedural laboratory examination; Z01.818 Encounter for other preprocedural examination; Z79.1 Long term (current) use of non-steroidal anti-inflammatories (NSAID); Z79.899 Other long term (current) drug therapy; Z85.46 Personal history of malignant neoplasm of prostate; Z85.51 Personal history of malignant neoplasm of bladder
CPT/HCPCS: 36415; 52332; 52352; 52356; 74018; 74420; 80048; 84550; 85025; 88300; 93005; C1766; C1769; C2617; J0131; J1100; J1580; J2003; J2405; J2704; J3010; J7030

== ENCOUNTER → 2025-02-09 | Day surgery (SDC) | payer MEDICARE, OTHER ==
[2025-02-08 09:47] LABS: BASOPHILS % 1.2 % (0.0-1.0); EOSINOPHILS % 4.3 % (0.0-6.0); LYMPHOCYTES % 14.1 % (18.0-39.1); MONOCYTES % 9.5 % (4.4-11.3); NEUTROPHILS % 70.1 % (38.7-80.0); RED CELL DISTRIBUTION WIDTH 12.6 % (11.7-14.4)
[2025-02-08 10:10] LABS: EST GLOMERULAR FILTRATION RATE 68.0 ML/MIN (>=60)
[~2025-02-09] MED LIST changes: -ACETAMINOPHEN/CODEINE 300MG - 30MG TAB ONE
[2025-02-09] MEDS: GENTAMICIN 80MG/NS 100 ML 200 ML IV ONE (06:56)
[2025-02-09] MEDS: SODIUM CHLORIDE 0.9% 1000ML 1,000 ML ONE (06:56)
[2025-02-09] MEDS: PHENAZOPYRIDINE HCL 100 MG TAB ONE (08:55)
[2025-02-09 10:00] VITALS: BP 141/92; PULSE 74; RESP 18; O2SAT 99
== END | disposition home or self-care (01) ==
LOC: OR 05:51
PROVIDERS: ATTEND Urology
DX: N20.0 Calculus of kidney (principal); N35.819 Other urethral stricture, male, unspecified site; N28.89 Other specified disorders of kidney and ureter; E78.5 Hyperlipidemia, unspecified; Z91.02 Food additives allergy status; Z88.0 Allergy status to penicillin; Z01.810 Encounter for preprocedural cardiovascular examination; Z01.812 Encounter for preprocedural laboratory examination; Z01.818 Encounter for other preprocedural examination; Z46.6 Encounter for fitting and adjustment of urinary device; Z79.1 Long term (current) use of non-steroidal anti-inflammatories (NSAID); Z79.899 Other long term (current) drug therapy
CPT/HCPCS: 36415; 52352; 71046; 74018; 74420; 80048; 84550; 85025; 87086; 88300; 93005; C1769; J0131; J1100; J1580; J2003; J2405; J2704; J3010; J7030

== ENCOUNTER → 2025-05-05 | Outpatient (REF) | payer OTHER ==
[~2025-05-05] MED LIST changes: -ACETAMINOPHEN 1000 MG/100 ML 100 ML IV ONE; -DEXAMETHASONE SOD PHOS INJ 4 MG/ML SDV ONE; -FENTANYL CITRATE/PF 100MCG/2 ML INJ ONE; -LIDOCAINE HCL 2% LOCAL INJ 5 ML SDV VIAL INJ ONE; -ONDANSETRON HCL INJ 2MG/ML 2ML 2 MG/ML VIAL ONE; -PROPOFOL IV EMULSION 10 MG/ML 20 ML VIAL ONE; -SEVOFLURANE INHAL SOLN 250 ML PEN BTL ONE
== END ==
LOC: RAD 09:51
PROVIDERS: ATTEND Urology
DX: N20.0 Calculus of kidney (principal); N20.1 Calculus of ureter
CPT/HCPCS: 74018